=== PATIENT | male | born 1965 | race Caucasian/White ===

== ENCOUNTER 2016-08-28 17:51 | Inpatient (IN) | payer MEDICAID, OTHER ==
[~2016-08-28] VITALS: Ht 175.3 cm; Wt 106.0 kg
[~2016-08-28 17:51] MED LIST: DIVA500T52 PO; PARO20TA24 PO; RISP0.252 PO; VITAD1000 PO
[2016-08-28] MEDS ORDERED: LORA1TAB3 PO (18:28)
[2016-08-28 18:31] LABS: ANION GAP 15 mmol/L (8-16); BASOPHILS % (AUTO) 0.6 % (0.0-2.0); CARBON DIOXIDE 24 mmol/L (22-29); CHLORIDE 102 mmol/L (98-107); CREATININE 0.85 mg/dL (0.60-1.30); EOSINOPHILS % (AUTO) 1.3 % (1.0-6.0); GLOMERULAR FILTR. RATE CALC > 60 mL/min (>60); HEMATOCRIT 47.7 % (41-53); HEMOGLOBIN 15.9 g/dL (13.5-17.5); LYMPHOCYTES # (AUTO) 1.4 K/uL (1.0-4.8); LYMPHOCYTES % (AUTO) 26.5 % (22.0-44.0); MEAN CORPUSCULAR HEMOGLOBIN 31.2 pg (26.0-34.0); MEAN CORPUSCULAR HGB CONC 33.4 G/dL (31.0-37.0); MEAN CORPUSCULAR VOLUME 94 fL (80-100); MONOCYTES # (AUTO) 0.6 K/uL (0.1-1.0); MONOCYTES % (AUTO) 10.8 % (2.0-9.0); NEUTROPHILS # (AUTO) 3.2 K/uL (1.8-7.7); NEUTROPHILS % (AUTO) 60.8 % (40.0-70.0); PLATELET COUNT (AUTO) 146 K/uL (150-450); POTASSIUM 3.9 mmol/L (3.5-5.1); SODIUM SERUM 141 mmol/L (136-145); UREA NITROGEN, BLOOD 11 mg/dL (7-18); WHITE BLOOD COUNT (AUTO) 5.3 K/uL (4.5-11.0)
[2016-08-28 18:36] LABS: ALANINE AMINOTRANSFERASE 46 U/L (12-78); ALBUMIN 3.8 g/dL (3.4-5.0); ASPARTATE AMINOTRANSFERASE 45 U/L (15-37); BILIRUBIN,TOTAL 0.5 mg/dL (0.1-1.0); TOTAL PROTEIN, SERUM 8.2 g/dL (6.4-8.2)
[2016-08-28] MEDS ORDERED: ZOLPIDEM TARTRATE 10 MG TABLET PO PRN (19:00)
[2016-08-28] MEDS ORDERED: ChlordiazePOXIDE HCL 25 MG CAPSULE PO PRN (19:00)
[2016-08-28] MEDS ORDERED: HALOPERIDOL 5 MG TABLET PO PRN (19:00)
[2016-08-28] MEDS ORDERED: ONDANSETRON HCL 4 MG TABLET PO ONE (19:30)
[2016-08-28 20:00] VITALS: BP 119/93
[2016-08-28 21:00] VITALS: BP 115/89
[2016-08-28 21:20] VITALS: BP 115/89
[2016-08-28 23:15] VITALS: BP_SYST 116; BP_SYST 16; BP_DIAS 86
[2016-08-29] VITALS (7 sets, daily range): BP systolic 112–126; BP diastolic 72–91
[2016-08-29] MEDS ORDERED: ChlordiazePOXIDE HCL 25 MG CAPSULE PO PRN (07:00)
[2016-08-29] MEDS: THIAMINE HCL 100 MG TABLET PO SCH (09:11)
[2016-08-29] MEDS: FOLIC ACID 1 MG TABLET PO SCH (09:11)
[2016-08-29] MEDS: ChlordiazePOXIDE HCL 25 MG CAPSULE PO SCH ×4 (09:11→20:49)
[2016-08-29] MEDS: PARoxetine HCL 20 MG TABLET PO SCH (12:23)
[2016-08-29] MEDS ORDERED: ONDANSETRON HCL 4 MG TABLET PO PRN (19:00)
[2016-08-30 00:10] VITALS: BP 121/68
[2016-08-30 06:45] VITALS: BP 118/72
[2016-08-30 06:47] VITALS: BP 118/72
[2016-08-30 08:07] VITALS: BP 132/87
[2016-08-30] MEDS: FOLIC ACID 1 MG TABLET PO SCH (09:58)
[2016-08-30] MEDS: ChlordiazePOXIDE HCL 25 MG CAPSULE PO SCH ×4 (09:58→20:43)
[2016-08-30] MEDS: THIAMINE HCL 100 MG TABLET PO SCH (09:58)
[2016-08-30] MEDS: PARoxetine HCL 20 MG TABLET PO SCH (09:58)
[2016-08-30] MEDS ORDERED: MAG HYDROX/AL HYDROX/SIMETH 30 ML SUSP UDCUP PO PRN (14:45)
[2016-08-30] MEDS ORDERED: ACETAMINOPHEN 325 MG TABLET PO PRN (16:30)
[2016-08-30 16:41] VITALS: BP 139/87
[2016-08-31] MEDS ORDERED: ChlordiazePOXIDE HCL 10 MG CAPSULE PO PRN (07:00)
[2016-08-31] MEDS: ChlordiazePOXIDE HCL 10 MG CAPSULE PO SCH ×2 (08:27→12:04)
[2016-08-31] MEDS: PARoxetine HCL 20 MG TABLET PO SCH (08:27)
[2016-08-31] MEDS: FOLIC ACID 1 MG TABLET PO SCH (08:27)
[2016-08-31] MEDS: THIAMINE HCL 100 MG TABLET PO SCH (08:28)
[2016-08-31] MEDS ORDERED: TETRAHYDROZOLINE HCL 0.05% 15 ML OPHTHALMIC SOLUTION OU PRN (08:45)
[2016-08-31] MEDS ORDERED: AmLODIPine BESYLATE 5 MG TABLET PO SCH (09:00)
[2016-08-31] MEDS ORDERED: AMLO-511 PO (10:53)
[2016-08-31] MEDS ORDERED: THIA100 PO (10:53)
[2016-08-31] MEDS ORDERED: FOLI1 PO (10:53)
[2016-08-31 14:58] VITALS: BP 139/99
[2016-09-01] MEDS ORDERED: ChlordiazePOXIDE HCL 10 MG CAPSULE PO PRN (07:00)
== END 2016-08-31 15:00 | disposition home or self-care (01) | DRG 751 ==
LOC: EMS 17:52 → 3EI 19:00
PROVIDERS: ADMIT Psychiatry & Neurology Child & Adolescent Psychiatry; ATTEND Psychiatry & Neurology Child & Adolescent Psychiatry
DX: F33.2 Major depressive disorder, recurrent severe without psychotic features (principal); R45.851 Suicidal ideations; F10.239 Alcohol dependence with withdrawal, unspecified; F41.9 Anxiety disorder, unspecified; R74.0 Nonspecific elevation of levels of transaminase and lactic acid dehydrogenase [LDH]; F19.10 Other psychoactive substance abuse, uncomplicated; Z71.51 Drug abuse counseling and surveillance of drug abuser; Z71.41 Alcohol abuse counseling and surveillance of alcoholic; Z79.899 Other long term (current) drug therapy
CPT/HCPCS: 99285; G0480; Q0162

== ENCOUNTER 2016-12-24 12:15 | Inpatient (IN) | payer MEDICAID, OTHER ==
[~2016-12-24] VITALS: Ht 175.3 cm; Wt 88.9 kg
[~2016-12-24 12:15] MED LIST changes: +AMLO-511 PO; -DIVA500T52 PO; -RISP0.252 PO; -VITAD1000 PO
[2016-12-24] MEDS ORDERED: LIB25 PO (12:26)
[2016-12-24] MEDS ORDERED: FLUO-191 PO (12:26)
[2016-12-24] MEDS ORDERED: CLON1 PO (12:26)
[2016-12-24 12:57] LABS: BASOPHILS % (AUTO) 1.3 % (0.0-2.0); HEMATOCRIT 38.4 % (41-53); HEMOGLOBIN 13.5 g/dL (13.5-17.5); LYMPHOCYTES # (AUTO) 1.2 K/uL (1.0-4.8); LYMPHOCYTES % (AUTO) 32.2 % (22.0-44.0); MEAN CORPUSCULAR HEMOGLOBIN 32.5 pg (26.0-34.0); MEAN CORPUSCULAR HGB CONC 35.2 G/dL (31.0-37.0); MEAN CORPUSCULAR VOLUME 92 fL (80-100); MONOCYTES # (AUTO) 0.4 K/uL (0.1-1.0); MONOCYTES % (AUTO) 11.2 % (2.0-9.0); NEUTROPHILS # (AUTO) 1.9 K/uL (1.8-7.7); NEUTROPHILS % (AUTO) 53.3 % (40.0-70.0); PLATELET COUNT (AUTO) 269 K/uL (150-450); RED BLOOD CELL COUNT(AUTO) 4.16 MIL/uL (4.50-5.90); RED CELL DISTRIBUTION WIDTH 18.3 % (11.5-14.5); WHITE BLOOD COUNT (AUTO) 3.6 K/uL (4.5-11.0)
[2016-12-24 13:10] LABS: ANION GAP 11 mmol/L (8-16); CALCIUM, TOTAL 8.5 mg/dL (8.8-10.5); CARBON DIOXIDE 26 mmol/L (22-29); CHLORIDE 108 mmol/L (98-107); CREATININE 0.69 mg/dL (0.60-1.30); GLOMERULAR FILTR. RATE CALC > 60 mL/min (>60); POTASSIUM 3.8 mmol/L (3.5-5.1); SODIUM SERUM 145 mmol/L (136-145); UREA NITROGEN, BLOOD 6 mg/dL (7-18)
[2016-12-24 13:16] LABS: ALANINE AMINOTRANSFERASE 68 U/L (12-78); ALBUMIN 3.4 g/dL (3.4-5.0); ASPARTATE AMINOTRANSFERASE 80 U/L (15-37); BILIRUBIN,TOTAL 0.6 mg/dL (0.1-1.0); RBC MORPHOLOGY COMMENT ABNORMAL RBC MORPH; TOTAL PROTEIN, SERUM 7.1 g/dL (6.4-8.2)
[2016-12-24] MEDS ORDERED: LORazepam 2 MG TABLET PO PRN ×2 (14:15→22:00)
[2016-12-24] MEDS ORDERED: ZOLPIDEM TARTRATE 10 MG TABLET PO PRN (14:15)
[2016-12-24] MEDS ORDERED: HALOPERIDOL 5 MG TABLET PO PRN (14:15)
[2016-12-24] MEDS ORDERED: HydrOXYzine HCL 50 MG TABLET PO ONE (14:30)
[2016-12-24] MEDS ORDERED: GABAPENTIN 100 MG CAPSULE PO ONE (14:30)
[2016-12-24 22:00] VITALS: BP 131/69
[2016-12-24] MEDS ORDERED: GuaiFENesin/D-METHORPHAN [SUGAR-FREE] 200-20MG/10 ML SYRUP UDCUP PO PRN (22:00)
[2016-12-24] MEDS ORDERED: HydrOXYzine PAMOATE 50 MG CAPSULE PO PRN (22:00)
[2016-12-24] MEDS ORDERED: LOPERAMIDE HCL 2 MG CAPSULE PO PRN (22:00)
[2016-12-24] MEDS ORDERED: CYANOCOBALAMIN 1,000 MCG/ML VIAL IM ONE (22:00)
[2016-12-24] MEDS: THIAMINE HCL 100 MG TABLET PO SCH (22:18)
[2016-12-24] MEDS ORDERED: LORazepam 2 MG/ML VIAL IM ONE (22:45)
[2016-12-24 23:00] VITALS: BP 126/83
[2016-12-25] VITALS (11 sets, daily range): BP systolic 11–142; BP diastolic 67–93
[2016-12-25] MEDS ORDERED: LORazepam 2 MG TABLET PO PRN (07:00)
[2016-12-25] MEDS: LORazepam 2 MG TABLET PO SCH ×4 (08:27→20:45)
[2016-12-25] MEDS: MULTIVITAMINS WITH MINERALS, THERAPEUTIC TABLET PO SCH (08:27)
[2016-12-25] MEDS: THIAMINE HCL 100 MG TABLET PO SCH ×2 (08:27→16:47)
[2016-12-25] MEDS: FOLIC ACID 1 MG TABLET PO SCH (08:27)
[2016-12-25] MEDS: AmLODIPine BESYLATE 5 MG TABLET PO SCH (11:12)
[2016-12-25] MEDS ORDERED: ACETAMINOPHEN 325 MG TABLET PO PRN (11:15)
[2016-12-25] MEDS: CHOLECALCIFEROL (VIT D3) 1,000 UNITS TABLET PO SCH (11:38)
[2016-12-25] MEDS: FLUoxetine HCL 20 MG CAPSULE PO SCH (15:25)
[2016-12-25] MEDS: GABAPENTIN 300 MG CAPSULE PO SCH (16:47)
[2016-12-26 00:10] VITALS: BP 100/65
[2016-12-26 08:00] VITALS: BP 104/66
[2016-12-26] MEDS: FLUoxetine HCL 20 MG CAPSULE PO SCH (08:57)
[2016-12-26] MEDS: GABAPENTIN 300 MG CAPSULE PO SCH ×2 (08:57→12:30)
[2016-12-26] MEDS: MULTIVITAMINS WITH MINERALS, THERAPEUTIC TABLET PO SCH (08:57)
[2016-12-26] MEDS: CHOLECALCIFEROL (VIT D3) 1,000 UNITS TABLET PO SCH (08:57)
[2016-12-26] MEDS: FOLIC ACID 1 MG TABLET PO SCH (08:57)
[2016-12-26] MEDS: AmLODIPine BESYLATE 5 MG TABLET PO SCH (08:58)
[2016-12-26] MEDS: LORazepam 2 MG TABLET PO SCH ×4 (08:58→20:22)
[2016-12-26] MEDS: THIAMINE HCL 100 MG TABLET PO SCH ×2 (08:58→16:24)
[2016-12-26 09:05] VITALS: BP 104/66
[2016-12-26 16:00] VITALS: BP 118/70
[2016-12-26] MEDS: GABAPENTIN 100 MG CAPSULE PO SCH (16:24)
[2016-12-27 00:20] VITALS: BP 108/64
[2016-12-27] MEDS ORDERED: LORazepam 1 MG TABLET PO PRN (07:00)
[2016-12-27 08:21] VITALS: BP 102/60
[2016-12-27 08:22] VITALS: BP 102/60
[2016-12-27] MEDS: MULTIVITAMINS WITH MINERALS, THERAPEUTIC TABLET PO SCH (09:03)
[2016-12-27] MEDS: GABAPENTIN 100 MG CAPSULE PO SCH ×3 (09:03→16:41)
[2016-12-27] MEDS: CHOLECALCIFEROL (VIT D3) 1,000 UNITS TABLET PO SCH (09:03)
[2016-12-27] MEDS: LORazepam 1 MG TABLET PO SCH ×4 (09:03→20:55)
[2016-12-27] MEDS: FOLIC ACID 1 MG TABLET PO SCH (09:03)
[2016-12-27] MEDS: AmLODIPine BESYLATE 5 MG TABLET PO SCH (09:03)
[2016-12-27] MEDS: THIAMINE HCL 100 MG TABLET PO SCH ×2 (09:03→16:41)
[2016-12-27] MEDS: FLUoxetine HCL 20 MG CAPSULE PO SCH (09:03)
[2016-12-27 09:56] VITALS: BP 105/67
[2016-12-27 16:00] VITALS: BP 112/74
[2016-12-28 00:48] VITALS: BP 100/63
[2016-12-28] MEDS ORDERED: LORazepam 1 MG TABLET PO PRN (07:00)
[2016-12-28 08:00] VITALS: BP 97/61
[2016-12-28] MEDS: FOLIC ACID 1 MG TABLET PO SCH (08:59)
[2016-12-28] MEDS: THIAMINE HCL 100 MG TABLET PO SCH (08:59)
[2016-12-28] MEDS: CHOLECALCIFEROL (VIT D3) 1,000 UNITS TABLET PO SCH (08:59)
[2016-12-28] MEDS: MULTIVITAMINS WITH MINERALS, THERAPEUTIC TABLET PO SCH (08:59)
[2016-12-28] MEDS: AmLODIPine BESYLATE 5 MG TABLET PO SCH (08:59)
[2016-12-28] MEDS ORDERED: FLUoxetine HCL 20 MG CAPSULE PO SCH (09:00)
[2016-12-28] MEDS ORDERED: AMLO-511 PO (09:48)
[2016-12-28] MEDS ORDERED: CHOL200016 PO (09:48)
[2016-12-28 12:16] VITALS: BP 117/79
== END 2016-12-28 12:35 | disposition home or self-care (01) | DRG 751 ==
LOC: EMS 12:16 → B2S 20:52
PROVIDERS: ADMIT Psychiatry & Neurology Psychiatry; ATTEND Psychiatry & Neurology Psychiatry
DX: F33.2 Major depressive disorder, recurrent severe without psychotic features (principal); R45.851 Suicidal ideations; F41.9 Anxiety disorder, unspecified; F10.20 Alcohol dependence, uncomplicated; Y90.8 Blood alcohol level of 240 mg/100 ml or more; Z79.899 Other long term (current) drug therapy; Z71.41 Alcohol abuse counseling and surveillance of alcoholic
CPT/HCPCS: 93005; 99285; G0480; J2060; J3420

== ENCOUNTER 2017-06-22 16:33 | Inpatient (IN) | payer MEDICAID, OTHER ==
[~2017-06-22] VITALS: Ht 175.3 cm; Wt 89.4 kg
[~2017-06-22 16:33] MED LIST changes: +CHOL200016 PO; +FLUO-191 PO; -PARO20TA24 PO
[2017-06-22] MEDS ORDERED: GABA-531 PO (18:02)
[2017-06-22] MEDS ORDERED: CLON1 PO (18:02)
[2017-06-22] MEDS ORDERED: FLUO-191 PO (18:02)
[2017-06-22] MEDS ORDERED: AMLO2.5T PO (18:02)
[2017-06-22] MEDS ORDERED: QUET25TA PO (18:02)
[2017-06-22 18:28] LABS: GLUCOSE,POINT OF CARE 92 MG/DL (70-110)
[2017-06-22] MEDS ORDERED: LORazepam 1 MG TABLET PO ONE (18:45)
[2017-06-22 18:50] LABS: BASOPHILS % (AUTO) 0.5 % (0.0-2.0); EOSINOPHILS % (AUTO) 1.2 % (1.0-6.0); HEMATOCRIT 36.6 % (41-53); HEMOGLOBIN 12.7 g/dL (13.5-17.5); LYMPHOCYTES # (AUTO) 1.5 K/uL (1.0-4.8); LYMPHOCYTES % (AUTO) 26.4 % (22.0-44.0); MEAN CORPUSCULAR HEMOGLOBIN 31.4 pg (26.0-34.0); MEAN CORPUSCULAR HGB CONC 34.7 G/dL (31.0-37.0); MEAN CORPUSCULAR VOLUME 90 fL (80-100); MONOCYTES # (AUTO) 0.6 K/uL (0.1-1.0); MONOCYTES % (AUTO) 10.5 % (2.0-9.0); NEUTROPHILS # (AUTO) 3.5 K/uL (1.8-7.7); NEUTROPHILS % (AUTO) 61.4 % (40.0-70.0); PLATELET COUNT (AUTO) 150 K/uL (150-450); RED BLOOD CELL COUNT(AUTO) 4.06 MIL/uL (4.50-5.90); RED CELL DISTRIBUTION WIDTH 13.8 % (11.5-14.5)
[2017-06-22 20:17] LABS: ANION GAP 11 mmol/L (8-16); CALCIUM, TOTAL 8.2 mg/dL (8.8-10.5); CARBON DIOXIDE 23 mmol/L (22-29); CHLORIDE 107 mmol/L (98-107); CREATININE 0.75 mg/dL (0.60-1.30); GLOMERULAR FILTR. RATE CALC > 60 mL/min (>60); GLUCOSE,RANDOM 89 mg/dL (70-110); POTASSIUM 4.2 mmol/L (3.5-5.1); SODIUM SERUM 141 mmol/L (136-145); UREA NITROGEN, BLOOD 14 mg/dL (7-18)
[2017-06-22 20:23] LABS: ALANINE AMINOTRANSFERASE 60 U/L (12-78); ALBUMIN 3.2 g/dL (3.4-5.0); ALKALINE PHOSPHATASE 110 U/L (46-116); ASPARTATE AMINOTRANSFERASE 41 U/L (15-37); BILIRUBIN,TOTAL 0.5 mg/dL (0.1-1.0); TOTAL PROTEIN, SERUM 6.4 g/dL (6.4-8.2)
[2017-06-22 20:43] LABS: ACETAMINOPHEN < 2 mcg/mL (10-30)
[2017-06-22] MEDS ORDERED: HALOPERIDOL 5 MG TABLET PO PRN (22:45)
[2017-06-23] VITALS (8 sets, daily range): BP systolic 105–133; BP diastolic 62–92
[2017-06-23] MEDS: LORazepam 2 MG TABLET PO PRN ×3 (01:59→21:59)
[2017-06-23 09:44] LABS: CHOL/HDL RATIO 2.5 (4.2-7.3)
[2017-06-23] MEDS ORDERED: ChlordiazePOXIDE HCL 25 MG CAPSULE PO PRN (10:45)
[2017-06-23] MEDS: FLUoxetine HCL 20 MG CAPSULE PO SCH (11:13)
[2017-06-23] MEDS: GABAPENTIN 300 MG CAPSULE PO SCH ×2 (12:31→16:25)
[2017-06-23] MEDS: QUEtiapine FUMARATE 25 MG TABLET PO SCH (20:18)
[2017-06-24 00:20] VITALS: BP 108/76
[2017-06-24 04:04] VITALS: BP 115/68
[2017-06-24] MEDS ORDERED: ChlordiazePOXIDE HCL 25 MG CAPSULE PO PRN (07:00)
[2017-06-24 07:32] VITALS: BP 113/61
[2017-06-24 08:07] VITALS: BP 115/76
[2017-06-24] MEDS: GABAPENTIN 300 MG CAPSULE PO SCH ×3 (09:30→16:53)
[2017-06-24] MEDS: FLUoxetine HCL 20 MG CAPSULE PO SCH (09:30)
[2017-06-24] MEDS: ChlordiazePOXIDE HCL 25 MG CAPSULE PO SCH ×4 (09:30→20:40)
[2017-06-24 10:45] VITALS: BP 111/72
[2017-06-24] MEDS: LORazepam 2 MG TABLET PO PRN ×3 (10:58→22:18)
[2017-06-24 16:00] VITALS: BP 114/74
[2017-06-24] MEDS: QUEtiapine FUMARATE 25 MG TABLET PO SCH (20:40)
[2017-06-24] MEDS: ZOLPIDEM TARTRATE 10 MG TABLET PO PRN (20:40)
[2017-06-25] VITALS (9 sets, daily range): BP systolic 113–129; BP diastolic 71–90
[2017-06-25] MEDS: LORazepam 2 MG TABLET PO PRN ×2 (02:30→12:55)
[2017-06-25] MEDS: GABAPENTIN 300 MG CAPSULE PO SCH ×3 (08:24→17:12)
[2017-06-25] MEDS: ChlordiazePOXIDE HCL 25 MG CAPSULE PO SCH ×4 (08:24→20:05)
[2017-06-25] MEDS: FLUoxetine HCL 20 MG CAPSULE PO SCH (08:24)
[2017-06-25] MEDS ORDERED: ACETAMINOPHEN 325 MG TABLET PO PRN (08:45)
[2017-06-25] MEDS: IBUPROFEN 600 MG TABLET PO PRN (08:55)
[2017-06-25] MEDS: QUEtiapine FUMARATE 25 MG TABLET PO SCH (20:05)
[2017-06-25] MEDS: ZOLPIDEM TARTRATE 10 MG TABLET PO PRN (21:57)
[2017-06-26] MEDS: LORazepam 2 MG TABLET PO PRN (00:08)
[2017-06-26 01:43] VITALS: BP 115/80
[2017-06-26] MEDS: IBUPROFEN 600 MG TABLET PO PRN (04:39)
[2017-06-26] MEDS ORDERED: ChlordiazePOXIDE HCL 10 MG CAPSULE PO PRN (07:00)
[2017-06-26 08:12] VITALS: BP 120/86
[2017-06-26] MEDS: FLUoxetine HCL 20 MG CAPSULE PO SCH (08:16)
[2017-06-26] MEDS: GABAPENTIN 300 MG CAPSULE PO SCH (08:16)
[2017-06-26 08:54] VITALS: BP 121/82
[2017-06-26] MEDS ORDERED: ChlordiazePOXIDE HCL 10 MG CAPSULE PO SCH (09:00)
[2017-06-26] MEDS ORDERED: CHOLECALCIFEROL (VIT D3) 5,000 UNITS CAPSULE PO SCH (09:00)
[2017-06-26] MEDS ORDERED: QUET25TA PO (09:31)
[2017-06-26] MEDS ORDERED: CHOL50004 PO (09:33)
[2017-06-27] MEDS ORDERED: ChlordiazePOXIDE HCL 10 MG CAPSULE PO PRN (07:00)
== END 2017-06-26 11:22 | disposition home or self-care (01) | DRG 751 ==
LOC: EMS 16:39 → B3A 06-23 00:05 → B2S 06-24 22:10
PROVIDERS: ADMIT Psychiatry & Neurology Child & Adolescent Psychiatry; ATTEND Psychiatry & Neurology Child & Adolescent Psychiatry
DX: F33.2 Major depressive disorder, recurrent severe without psychotic features (principal); R45.851 Suicidal ideations; F10.239 Alcohol dependence with withdrawal, unspecified; F41.9 Anxiety disorder, unspecified; Z79.899 Other long term (current) drug therapy; Z91.5 Personal history of self-harm
CPT/HCPCS: 82948; 82962; 93005; 99285; G0480; G0481

== ENCOUNTER 2018-11-19 12:22 | Inpatient (IN) | payer MEDICAID, OTHER ==
[~2018-11-19] VITALS: Ht 175.3 cm; Wt 96.8 kg
[~2018-11-19 12:22] MED LIST changes: -AMLO-511 PO; -CHOL200016 PO; +CHOL50004 PO; +GABA-531 PO; +QUET25TA PO
[2018-11-19] MEDS ORDERED: HYDR50CA10 PO (12:35)
[2018-11-19] MEDS ORDERED: CLON2 PO (12:35)
[2018-11-19 13:43] LABS: BASOPHILS % (AUTO) 0.5 % (0.0-2.0); EOSINOPHILS % (AUTO) 0.6 % (1.0-6.0); HEMATOCRIT 39.7 % (41-53); HEMOGLOBIN 13.2 g/dL (13.5-17.5); LYMPHOCYTES # (AUTO) 1.5 K/uL (1.0-4.8); LYMPHOCYTES % (AUTO) 30.2 % (22.0-44.0); MEAN CORPUSCULAR HEMOGLOBIN 29.7 pg (26.0-34.0); MEAN CORPUSCULAR HGB CONC 33.2 G/dL (31.0-37.0); MEAN CORPUSCULAR VOLUME 90 fL (80-100); MONOCYTES # (AUTO) 0.5 K/uL (0.1-1.0); MONOCYTES % (AUTO) 9.7 % (2.0-9.0); PLATELET COUNT (AUTO) 144 K/uL (150-450); RED BLOOD CELL COUNT(AUTO) 4.44 MIL/uL (4.50-5.90); RED CELL DISTRIBUTION WIDTH 14.3 % (11.5-14.5)
[2018-11-19 13:52] LABS: ANION GAP 12 mmol/L (8-16); CALCIUM, TOTAL 8.1 mg/dL (8.8-10.5); CARBON DIOXIDE 26 mmol/L (22-29); CHLORIDE 109 mmol/L (98-107); GLOMERULAR FILTR. RATE CALC > 60 mL/min (>60); GLUCOSE,RANDOM 94 mg/dL (70-110); POTASSIUM 3.3 mmol/L (3.5-5.1); SODIUM SERUM 147 mmol/L (136-145); UREA NITROGEN, BLOOD 16 mg/dL (7-18)
[2018-11-19 13:58] LABS: ALANINE AMINOTRANSFERASE 77 U/L (12-78); ALBUMIN 3.2 g/dL (3.4-5.0); ALKALINE PHOSPHATASE 115 U/L (46-116); ASPARTATE AMINOTRANSFERASE 93 U/L (15-37); BILIRUBIN,TOTAL 0.6 mg/dL (0.1-1.0); TOTAL PROTEIN, SERUM 6.8 g/dL (6.4-8.2)
[2018-11-19 14:06] LABS: AMPHET/METH SCREEN,URINE NEGATIVE (NEGATIVE); BARBITURATE SCREEN, URINE NEGATIVE (NEGATIVE); BENZODIAZEPINES SCREEN,URINE POSITIVE (NEGATIVE); CANNABINOID SCREEN,URINE NEGATIVE (NEGATIVE); COCAINE SCREEN,URINE NEGATIVE (NEGATIVE); METHADONE SCREEN, URINE NEGATIVE (NEGATIVE); OPIATE SCREEN,URINE NEGATIVE (NEGATIVE)
[2018-11-19 14:09] LABS: PHENCYCLIDINE SCREEN,URINE NEGATIVE (NEGATIVE)
[2018-11-19] MEDS ORDERED: POTASSIUM CHLORIDE 10% 40 MEQ/30 ML LIQUID UDCUP PO ONE (15:00)
[2018-11-19] MEDS ORDERED: LORazepam 2 MG TABLET PO ONE (23:30)
[2018-11-20] VITALS (12 sets, daily range): BP systolic 123–156; BP diastolic 77–100
[2018-11-20] MEDS ORDERED: QUEtiapine FUMARATE 100 MG TABLET PO PRN ×2 (01:45→03:45)
[2018-11-20] MEDS ORDERED: LORazepam 2 MG TABLET PO PRN (02:00)
[2018-11-20] MEDS ORDERED: CYANOCOBALAMIN 1,000 MCG/ML VIAL IM ONE (03:45)
[2018-11-20] MEDS ORDERED: ZOLPIDEM TARTRATE 10 MG TABLET PO PRN (03:45)
[2018-11-20] MEDS: LORazepam 2 MG TABLET PO PRN ×3 (07:37→13:32)
[2018-11-20] MEDS: FOLIC ACID 1 MG TABLET PO SCH (09:27)
[2018-11-20] MEDS: MULTIVITAMINS WITH MINERALS, THERAPEUTIC TABLET PO SCH (09:28)
[2018-11-20] MEDS: FLUoxetine HCL 20 MG CAPSULE PO SCH (09:28)
[2018-11-20] MEDS: GABAPENTIN 300 MG CAPSULE PO SCH ×4 (09:28→21:17)
[2018-11-20] MEDS: THIAMINE HCL 100 MG TABLET PO SCH ×2 (09:28→16:23)
[2018-11-20] MEDS ORDERED: POTASSIUM CHLORIDE 20 MEQ ER TABLET PO ONE ×2 (13:45→21:00)
[2018-11-20] MEDS: DIAZEPAM 10 MG TABLET PO PRN ×2 (17:13→21:16)
[2018-11-21 02:00] VITALS: BP 136/88
[2018-11-21] MEDS: DIAZEPAM 10 MG TABLET PO PRN (05:59)
[2018-11-21 06:00] VITALS: BP 139/92
[2018-11-21] MEDS ORDERED: LORazepam 2 MG TABLET PO PRN (07:00)
[2018-11-21] MEDS ORDERED: DIAZEPAM 10 MG TABLET PO PRN (07:00)
[2018-11-21 08:34] LABS: ANION GAP 4 mmol/L (8-16); CALCIUM, TOTAL 8.1 mg/dL (8.8-10.5); CARBON DIOXIDE 28 mmol/L (22-29); CHLORIDE 106 mmol/L (98-107); CHOL/HDL RATIO 2.6 (4.2-7.3); CHOLESTEROL 198 mg/dL (131-200); CREATININE 0.75 mg/dL (0.60-1.30); FREE T4 (FREE THYROXINE) 1.12 ng/dL (0.76-1.46); GLOMERULAR FILTR. RATE CALC > 60 mL/min (>60); GLUCOSE,RANDOM 95 mg/dL (70-110); HDL CHOLESTEROL 77 mg/dL (40-60); LDL CHOL (CALC.) 108 mg/dL (0-130); POTASSIUM 3.3 mmol/L (3.5-5.1); SODIUM SERUM 138 mmol/L (136-145); THYROID STIMULATING HORMONE 2.33 uIU/mL (0.36-3.74); TRIGLYCERIDES 66 mg/dL (15-150); UREA NITROGEN, BLOOD 9 mg/dL (7-18)
[2018-11-21 08:42] VITALS: BP 108/69
[2018-11-21] MEDS: CHOLECALCIFEROL (VIT D3) 5,000 UNITS CAPSULE PO SCH (08:49)
[2018-11-21] MEDS: MULTIVITAMINS WITH MINERALS, THERAPEUTIC TABLET PO SCH (08:49)
[2018-11-21] MEDS: DIAZEPAM 10 MG TABLET PO SCH ×4 (08:49→20:04)
[2018-11-21] MEDS: THIAMINE HCL 100 MG TABLET PO SCH ×2 (08:49→16:52)
[2018-11-21] MEDS: FOLIC ACID 1 MG TABLET PO SCH (08:49)
[2018-11-21] MEDS: GABAPENTIN 300 MG CAPSULE PO SCH ×3 (08:49→16:52)
[2018-11-21] MEDS: FLUoxetine HCL 20 MG CAPSULE PO SCH (08:49)
[2018-11-21] MEDS ORDERED: LORazepam 2 MG TABLET PO SCH (09:00)
[2018-11-21 10:00] VITALS: BP 128/78
[2018-11-21] MEDS: POTASSIUM CHLORIDE 20 MEQ ER TABLET PO SCH (12:12)
[2018-11-21 13:18] VITALS: BP 118/74
[2018-11-21] MEDS: ACETAMINOPHEN 325 MG TABLET PO PRN (13:18)
[2018-11-21 16:00] VITALS: BP 131/85
[2018-11-21] MEDS: GABAPENTIN 400 MG CAPSULE PO SCH (20:04)
[2018-11-22 00:08] VITALS: BP 134/93
[2018-11-22 01:00] VITALS: BP 134/93
[2018-11-22 08:12] VITALS: BP 108/81
[2018-11-22] MEDS ORDERED: FLUoxetine HCL 20 MG CAPSULE PO SCH (09:00)
[2018-11-22] MEDS: CHOLECALCIFEROL (VIT D3) 5,000 UNITS CAPSULE PO SCH (09:11)
[2018-11-22] MEDS: DIAZEPAM 10 MG TABLET PO SCH ×4 (09:11→20:45)
[2018-11-22] MEDS: FOLIC ACID 1 MG TABLET PO SCH (09:12)
[2018-11-22] MEDS: GABAPENTIN 400 MG CAPSULE PO SCH ×4 (09:12→20:45)
[2018-11-22] MEDS: THIAMINE HCL 100 MG TABLET PO SCH ×2 (09:12→17:00)
[2018-11-22] MEDS: MULTIVITAMINS WITH MINERALS, THERAPEUTIC TABLET PO SCH (09:12)
[2018-11-22] MEDS: POTASSIUM CHLORIDE 20 MEQ ER TABLET PO SCH (09:12)
[2018-11-22 16:30] VITALS: BP 113/73
[2018-11-22] MEDS ORDERED: GABA-533 PO (16:49)
[2018-11-22] MEDS ORDERED: FLUO-191 PO (16:49)
[2018-11-22] MEDS ORDERED: NALT50TA PO (16:49)
[2018-11-22] MEDS: ACETAMINOPHEN 325 MG TABLET PO PRN (17:00)
[2018-11-23 05:35] VITALS: BP 117/63
[2018-11-23] MEDS ORDERED: DIAZEPAM 5 MG TABLET PO PRN (07:00)
[2018-11-23] MEDS ORDERED: LORazepam 1 MG TABLET PO PRN (07:00)
[2018-11-23] MEDS: FOLIC ACID 1 MG TABLET PO SCH (08:28)
[2018-11-23] MEDS: THIAMINE HCL 100 MG TABLET PO SCH (08:28)
[2018-11-23] MEDS: CHOLECALCIFEROL (VIT D3) 5,000 UNITS CAPSULE PO SCH (08:28)
[2018-11-23] MEDS: MULTIVITAMINS WITH MINERALS, THERAPEUTIC TABLET PO SCH (08:28)
[2018-11-23] MEDS: POTASSIUM CHLORIDE 20 MEQ ER TABLET PO SCH (08:28)
[2018-11-23] MEDS: GABAPENTIN 400 MG CAPSULE PO SCH (08:39)
[2018-11-23 08:42] VITALS: BP 123/90
[2018-11-23] MEDS ORDERED: LORazepam 1 MG TABLET PO SCH (09:00)
[2018-11-23] MEDS ORDERED: NALTREXONE HCL 50 MG TABLET PO SCH (09:00)
[2018-11-23] MEDS ORDERED: DIAZEPAM 5 MG TABLET PO SCH (09:00)
[2018-11-23] MEDS ORDERED: FLUoxetine HCL 20 MG CAPSULE PO SCH (09:00)
[2018-11-24] MEDS ORDERED: LORazepam 1 MG TABLET PO PRN (07:00)
[2018-11-24] MEDS ORDERED: DIAZEPAM 5 MG TABLET PO PRN (07:00)
== END 2018-11-23 10:40 | disposition home or self-care (01) | DRG 751 ==
LOC: EMS 12:23 → B2S 11-20 09:19
PROVIDERS: ADMIT Psychiatry & Neurology Psychiatry; ATTEND Psychiatry & Neurology Psychiatry
DX: F33.9 Major depressive disorder, recurrent, unspecified (principal); R45.851 Suicidal ideations; Z91.19 Patient's noncompliance with other medical treatment and regimen; Z87.891 Personal history of nicotine dependence; Z91.5 Personal history of self-harm; Z79.899 Other long term (current) drug therapy
CPT/HCPCS: 82306; 84132; 84439; 84443; G0480; J3420

== ENCOUNTER 2019-01-14 18:54 | Inpatient (IN) | payer MEDICAID, OTHER ==
[~2019-01-14] VITALS: Ht 175.3 cm; Wt 93.0 kg
[~2019-01-14 18:54] MED LIST changes: -CHOL50004 PO; -GABA-531 PO; +GABA-533 PO; +NALT50TA PO; -QUET25TA PO
[2019-01-14] MEDS ORDERED: LIB5 PO (19:43)
[2019-01-14] MEDS ORDERED: LORA1TAB3 PO (19:43)
[2019-01-14 21:37] LABS: AMPHET/METH SCREEN,URINE NEGATIVE (NEGATIVE); BARBITURATE SCREEN, URINE NEGATIVE (NEGATIVE); BENZODIAZEPINES SCREEN,URINE POSITIVE (NEGATIVE); CANNABINOID SCREEN,URINE NEGATIVE (NEGATIVE); COCAINE SCREEN,URINE NEGATIVE (NEGATIVE); METHADONE SCREEN, URINE NEGATIVE (NEGATIVE); OPIATE SCREEN,URINE NEGATIVE (NEGATIVE)
[2019-01-14 21:38] LABS: PHENCYCLIDINE SCREEN,URINE NEGATIVE (NEGATIVE)
[2019-01-14 21:40] LABS: BASOPHILS % (AUTO) 0.2 % (0.0-2.0); EOSINOPHILS % (AUTO) 0.5 % (1.0-6.0); HEMATOCRIT 45.5 % (41-53); LYMPHOCYTES # (AUTO) 1.4 K/uL (1.0-4.8); LYMPHOCYTES % (AUTO) 31.3 % (22.0-44.0); MEAN CORPUSCULAR VOLUME 91 fL (80-100); MONOCYTES # (AUTO) 0.4 K/uL (0.1-1.0); MONOCYTES % (AUTO) 9.1 % (2.0-9.0); NEUTROPHILS # (AUTO) 2.6 K/uL (1.8-7.7); NEUTROPHILS % (AUTO) 58.9 % (40.0-70.0); PLATELET COUNT (AUTO) 232 K/uL (150-450); RED CELL DISTRIBUTION WIDTH 16.3 % (11.5-14.5)
[2019-01-14 21:42] LABS: ANION GAP 12 mmol/L (8-16); CALCIUM, TOTAL 8.4 mg/dL (8.8-10.5); CARBON DIOXIDE 24 mmol/L (22-29); CHLORIDE 104 mmol/L (98-107); CREATININE 0.85 mg/dL (0.60-1.30); GLOMERULAR FILTR. RATE CALC > 60 mL/min (>60); GLUCOSE,RANDOM 94 mg/dL (70-110); POTASSIUM 3.9 mmol/L (3.5-5.1); SODIUM SERUM 140 mmol/L (136-145); UREA NITROGEN, BLOOD 7 mg/dL (7-18)
[2019-01-14] MEDS ORDERED: HALOPERIDOL 5 MG TABLET PO PRN (21:45)
[2019-01-14] MEDS ORDERED: ZOLPIDEM TARTRATE 10 MG TABLET PO PRN (21:45)
[2019-01-14 21:48] LABS: ALANINE AMINOTRANSFERASE 31 U/L (12-78); ALBUMIN 3.6 g/dL (3.4-5.0); ALKALINE PHOSPHATASE 102 U/L (46-116); ASPARTATE AMINOTRANSFERASE 49 U/L (15-37)
[2019-01-14] MEDS ORDERED: LORazepam 2 MG TABLET PO ONE (22:00)
[2019-01-15] VITALS (10 sets, daily range): BP systolic 100–129; BP diastolic 63–84
[2019-01-15 02:56] LABS: APPEARANCE,URINE CLEAR (CLEAR); BILIRUBIN,URINE NEGATIVE (NEGATIVE); GLUCOSE, URINE (UA) NEGATIVE (NEGATIVE); KETONES,URINE NEGATIVE (NEGATIVE); LEUKOCYTE ESTERASE ,URINE NEGATIVE (NEGATIVE); NITRATE,URINE NEGATIVE (NEGATIVE); OCCULT BLOOD,URINE TRACE (NEGATIVE); PROTEIN,URINE NEGATIVE (NEGATIVE); UROBILINOGEN,URINE 0.2 mg/dL (<=1.0)
[2019-01-15] MEDS: LORazepam 2 MG TABLET PO PRN ×2 (03:17→05:19)
[2019-01-15 03:37] LABS: BACTERIA,URINE None Seen /HPF (None Seen); RBC,URINE 0-2 /HPF (0-2); SQUAMOUS EPITHELIAL CELL,UR Rare /LPF (None Seen); WBC,URINE 0-2 /HPF (0-5)
[2019-01-15] MEDS ORDERED: LORazepam 2 MG TABLET PO PRN (07:00)
[2019-01-15] MEDS: LORazepam 2 MG TABLET PO SCH ×3 (08:02→16:01)
[2019-01-15 08:03] LABS: CHOL/HDL RATIO 3.2 (4.2-7.3)
[2019-01-15] MEDS ORDERED: BISMUTH SUBSALICYLATE 524 MG/30 ML SUSPENSION UDCUP PO PRN (11:30)
[2019-01-15] MEDS ORDERED: FOLIC ACID 1 MG TABLET PO SCH (12:30)
[2019-01-15] MEDS ORDERED: THIAMINE HCL 100 MG TABLET PO SCH (12:30)
[2019-01-15] MEDS ORDERED: CYANOCOBALAMIN 1,000 MCG/ML VIAL IM ONE ×2 (12:30→16:15)
[2019-01-15] MEDS ORDERED: LOPERAMIDE HCL 2 MG CAPSULE PO PRN (16:15)
[2019-01-15] MEDS ORDERED: HydrOXYzine PAMOATE 50 MG CAPSULE PO PRN (16:15)
[2019-01-15] MEDS ORDERED: ACETAMINOPHEN 325 MG TABLET PO PRN (16:15)
[2019-01-15] MEDS ORDERED: GuaiFENesin/D-METHORPHAN [SUGAR-FREE] 200-20MG/10 ML SYRUP UDCUP PO PRN (16:15)
[2019-01-15] MEDS ORDERED: PROMETHAZINE HCL 25 MG TABLET PO PRN (16:15)
[2019-01-15] MEDS ORDERED: MAG HYDROX/AL HYDROX/SIMETH ES 30 ML SUSPENSION UDCUP PO PRN (16:15)
[2019-01-15] MEDS ORDERED: MAGNESIUM HYDROXIDE SUSPENSION 30 ML UDCUP PO PRN (16:15)
[2019-01-15] MEDS: THIAMINE HCL 100 MG TABLET PO SCH (16:43)
[2019-01-15] MEDS: GABAPENTIN 400 MG CAPSULE PO SCH ×3 (16:44→21:00)
[2019-01-15] MEDS ORDERED: GABAPENTIN 300 MG CAPSULE PO SCH (17:00)
[2019-01-15] MEDS: DIAZEPAM 10 MG TABLET PO PRN ×2 (18:36→20:49)
[2019-01-16 02:07] VITALS: BP 127/88
[2019-01-16 06:07] VITALS: BP 138/89
[2019-01-16] MEDS: DIAZEPAM 10 MG TABLET PO PRN (06:08)
[2019-01-16] MEDS ORDERED: DIAZEPAM 10 MG TABLET PO PRN (07:00)
[2019-01-16 08:15] VITALS: BP 117/81
[2019-01-16] MEDS: MULTIVITAMINS WITH MINERALS, THERAPEUTIC TABLET PO SCH (08:27)
[2019-01-16] MEDS: NALTREXONE HCL 50 MG TABLET PO SCH (08:27)
[2019-01-16] MEDS: FOLIC ACID 1 MG TABLET PO SCH (08:27)
[2019-01-16] MEDS: THIAMINE HCL 100 MG TABLET PO SCH ×2 (08:27→17:03)
[2019-01-16] MEDS ORDERED: PARoxetine HCL 20 MG TABLET PO SCH (09:00)
[2019-01-16] MEDS ORDERED: DULoxetine HCL 20 MG CAPSULE PO SCH (09:00)
[2019-01-16] MEDS: DIAZEPAM 10 MG TABLET PO SCH ×4 (09:18→20:10)
[2019-01-16 09:44] VITALS: BP 117/81
[2019-01-16 12:20] VITALS: BP 122/80
[2019-01-16] MEDS: GABAPENTIN 400 MG CAPSULE PO SCH ×3 (12:23→20:10)
[2019-01-16 16:00] VITALS: BP 123/96
[2019-01-17 00:34] VITALS: BP 106/69
[2019-01-17] MEDS ORDERED: LORazepam 1 MG TABLET PO PRN (07:00)
[2019-01-17 08:15] VITALS: BP 105/71
[2019-01-17] MEDS: PARoxetine HCL 20 MG TABLET PO SCH (08:36)
[2019-01-17] MEDS: MULTIVITAMINS WITH MINERALS, THERAPEUTIC TABLET PO SCH (08:36)
[2019-01-17] MEDS: FOLIC ACID 1 MG TABLET PO SCH (08:37)
[2019-01-17] MEDS: NALTREXONE HCL 50 MG TABLET PO SCH (08:37)
[2019-01-17] MEDS: GABAPENTIN 400 MG CAPSULE PO SCH ×4 (08:37→20:24)
[2019-01-17] MEDS: THIAMINE HCL 100 MG TABLET PO SCH ×2 (08:37→16:20)
[2019-01-17] MEDS: DIAZEPAM 10 MG TABLET PO SCH ×4 (08:37→20:24)
[2019-01-17] MEDS ORDERED: LORazepam 1 MG TABLET PO SCH (09:00)
[2019-01-17 12:18] VITALS: BP 114/78
[2019-01-17 16:16] VITALS: BP 114/78
[2019-01-17 16:37] VITALS: BP 114/78
[2019-01-18 06:26] VITALS: BP 131/80
[2019-01-18] MEDS ORDERED: DIAZEPAM 5 MG TABLET PO PRN (07:00)
[2019-01-18] MEDS ORDERED: LORazepam 1 MG TABLET PO PRN (07:00)
[2019-01-18] MEDS: THIAMINE HCL 100 MG TABLET PO SCH (08:05)
[2019-01-18] MEDS: FOLIC ACID 1 MG TABLET PO SCH (08:05)
[2019-01-18] MEDS: PARoxetine HCL 20 MG TABLET PO SCH (08:05)
[2019-01-18] MEDS: DIAZEPAM 5 MG TABLET PO SCH ×2 (08:05→12:23)
[2019-01-18] MEDS: GABAPENTIN 400 MG CAPSULE PO SCH ×2 (08:05→12:23)
[2019-01-18] MEDS: MULTIVITAMINS WITH MINERALS, THERAPEUTIC TABLET PO SCH (08:05)
[2019-01-18] MEDS: NALTREXONE HCL 50 MG TABLET PO SCH (08:06)
[2019-01-18 08:59] VITALS: BP 108/81
[2019-01-18] MEDS ORDERED: GABA-533 PO (11:08)
[2019-01-18] MEDS ORDERED: NALT50TA6 PO (11:08)
[2019-01-18] MEDS ORDERED: PARO10TA89 PO (11:08)
[2019-01-18 16:12] VITALS: BP 106/66
[2019-01-18] MEDS ORDERED: LOPERAMIDE HCL 2 MG CAPSULE PO PRN (16:15)
[2019-01-19] MEDS ORDERED: DIAZEPAM 5 MG TABLET PO PRN (07:00)
== END 2019-01-18 16:20 | disposition home or self-care (01) | DRG 751 ==
LOC: EMS 18:55 → B2S 22:00
PROVIDERS: ADMIT Psychiatry & Neurology Psychiatry; ATTEND Psychiatry & Neurology Psychiatry
DX: F33.2 Major depressive disorder, recurrent severe without psychotic features (principal); E83.51 Hypocalcemia; R45.851 Suicidal ideations; D72.819 Decreased white blood cell count, unspecified; F10.10 Alcohol abuse, uncomplicated; F17.210 Nicotine dependence, cigarettes, uncomplicated; F41.0 Panic disorder [episodic paroxysmal anxiety]; F41.9 Anxiety disorder, unspecified; F41.1 Generalized anxiety disorder; Z59.9 Problem related to housing and economic circumstances, unspecified; Z65.3 Problems related to other legal circumstances; Z80.1 Family history of malignant neoplasm of trachea, bronchus and lung; Z81.8 Family history of other mental and behavioral disorders; Z82.49 Family history of ischemic heart disease and other diseases of the circulatory system; Z91.14 Patient's other noncompliance with medication regimen; Z79.899 Other long term (current) drug therapy
CPT/HCPCS: G0480; J3420

== ENCOUNTER 2019-12-09 02:17 | Inpatient (IN) | payer MEDICAID, OTHER ==
[~2019-12-09] VITALS: Ht 175.3 cm; Wt 90.0 kg
[~2019-12-09 02:17] MED LIST changes: -FLUO-191 PO; +GABA-1201 PO; -GABA-533 PO; -NALT50TA PO; +NALT50TA6 PO; +PARO10TA89 PO
[2019-12-09] MEDS ORDERED: GABA-1216 PO (02:46)
[2019-12-09] MEDS ORDERED: ALPR0.5T8 PO (02:46)
[2019-12-09] MEDS ORDERED: HYDR-4031 PO (02:46)
[2019-12-09] MEDS ORDERED: FLUO-191 PO (02:47)
[2019-12-09] MEDS ORDERED: PB/HYOSCY/ATR/SCOP/LIDO/MAALOX 55 ML BOTTLE PO ONE (03:00)
[2019-12-09] MEDS ORDERED: ONDANSETRON HCL 4 MG TABLET PO ONE ×2 (03:00→14:30)
[2019-12-09] MEDS ORDERED: FAMOTIDINE 20 MG TABLET PO ONE (03:00)
[2019-12-09 03:31] LABS: CARBON DIOXIDE 29 mmol/L (22-29); CHLORIDE 101 mmol/L (98-107); POTASSIUM 3.8 mmol/L (3.5-5.1); SODIUM SERUM 139 mmol/L (136-145)
[2019-12-09 03:32] LABS: ANION GAP 9 mmol/L (8-16); BASOPHILS % (AUTO) 0.8 % (0.0-2.0); CALCIUM, TOTAL 8.7 mg/dL (8.8-10.5); CREATININE 1.02 mg/dL (0.60-1.30); EOSINOPHILS % (AUTO) 1.1 % (1.0-6.0); GLOMERULAR FILTR. RATE CALC > 60 mL/min (>60); GLUCOSE,RANDOM 99 mg/dL (70-110); HEMATOCRIT 45.4 % (41-53); HEMOGLOBIN 15.5 g/dL (13.5-17.5); LYMPHOCYTES # (AUTO) 1.4 K/uL (1.0-4.8); LYMPHOCYTES % (AUTO) 38.7 % (22.0-44.0); MEAN CORPUSCULAR HEMOGLOBIN 30.1 pg (26.0-34.0); MEAN CORPUSCULAR HGB CONC 34.1 G/dL (31.0-37.0); MEAN CORPUSCULAR VOLUME 88 fL (80-100); MONOCYTES # (AUTO) 0.5 K/uL (0.1-1.0); MONOCYTES % (AUTO) 12.4 % (2.0-9.0); NEUTROPHILS # (AUTO) 1.8 K/uL (1.8-7.7); PLATELET COUNT (AUTO) 194 K/uL (150-450); RED BLOOD CELL COUNT(AUTO) 5.15 MIL/uL (4.50-5.90); RED CELL DISTRIBUTION WIDTH 15.1 % (11.5-14.5); UREA NITROGEN, BLOOD 5 mg/dL (7-18)
[2019-12-09 03:35] LABS: INR 1.2 (0.9-1.1); PROTHROMBIN TIME 12.6 SEC (9.4-11.6)
[2019-12-09 03:38] LABS: ALANINE AMINOTRANSFERASE 46 U/L (12-78); ALKALINE PHOSPHATASE 112 U/L (46-116); ASPARTATE AMINOTRANSFERASE 59 U/L (15-37); BILIRUBIN,TOTAL 0.8 mg/dL (0.1-1.0); LIPASE 72 U/L (73-393); TOTAL PROTEIN, SERUM 8.3 g/dL (6.4-8.2)
[2019-12-09 03:40] LABS: ACETAMINOPHEN < 2 mcg/mL (10-30); SALICYLATE 2.7 mg/dL (2.8-20.0)
[2019-12-09 03:59] LABS: AMPHET/METH SCREEN,URINE NEGATIVE (NEGATIVE); BARBITURATE SCREEN, URINE NEGATIVE (NEGATIVE); BENZODIAZEPINES SCREEN,URINE POSITIVE (NEGATIVE); CANNABINOID SCREEN,URINE NEGATIVE (NEGATIVE); COCAINE SCREEN,URINE NEGATIVE (NEGATIVE); METHADONE SCREEN, URINE NEGATIVE (NEGATIVE); OPIATE SCREEN,URINE NEGATIVE (NEGATIVE)
[2019-12-09] MEDS ORDERED: LORazepam 2 MG TABLET PO ONE (04:00)
[2019-12-09 04:05] LABS: PHENCYCLIDINE SCREEN,URINE NEGATIVE (NEGATIVE)
[2019-12-09] MEDS ORDERED: ZOLPIDEM TARTRATE 10 MG TABLET PO PRN (05:30)
[2019-12-09] MEDS ORDERED: HALOPERIDOL 5 MG TABLET PO PRN (05:30)
[2019-12-09] MEDS: LORazepam 2 MG TABLET PO PRN ×3 (08:26→20:07)
[2019-12-09 08:58] LABS: APPEARANCE,URINE CLEAR (CLEAR); BILIRUBIN,URINE NEGATIVE (NEGATIVE); GLUCOSE, URINE (UA) NEGATIVE (NEGATIVE); KETONES,URINE NEGATIVE (NEGATIVE); LEUKOCYTE ESTERASE ,URINE NEGATIVE (NEGATIVE); NITRATE,URINE NEGATIVE (NEGATIVE); OCCULT BLOOD,URINE SMALL (NEGATIVE); PROTEIN,URINE NEGATIVE (NEGATIVE); UROBILINOGEN,URINE 0.2 mg/dL (<=1.0)
[2019-12-09 09:22] LABS: BACTERIA,URINE None Seen /HPF (None Seen); HYALINE CASTS, URINE 0-2 /LPF (None Seen); WBC,URINE None Seen /HPF (0-5)
[2019-12-09 17:20] VITALS: BP 131/105
[2019-12-09 18:25] VITALS: BP 123/90
[2019-12-09] MEDS ORDERED: LOPERAMIDE HCL 2 MG CAPSULE PO PRN (18:45)
[2019-12-09] MEDS ORDERED: MAGNESIUM HYDROXIDE SUSPENSION 30 ML UDCUP PO PRN (18:45)
[2019-12-09] MEDS ORDERED: DOCUSATE SODIUM 100 MG CAPSULE PO PRN (18:45)
[2019-12-09] MEDS ORDERED: MAG HYDROX/AL HYDROX/SIMETH ES 30 ML SUSPENSION UDCUP PO PRN (18:45)
[2019-12-09] MEDS ORDERED: IBUPROFEN 600 MG TABLET PO PRN (18:45)
[2019-12-09] MEDS ORDERED: BACITRACIN 28.4 GM OINTMENT TP PRN (18:45)
[2019-12-09] MEDS ORDERED: ALBUTEROL SULFATE HFA 90 MCG/PUFF 8 GM INHALER IH PRN (18:45)
[2019-12-09] MEDS ORDERED: ACETAMINOPHEN 325 MG TABLET PO PRN (18:45)
[2019-12-09] MEDS ORDERED: CloNIDine HCL 0.1 MG TABLET PO PRN (18:45)
[2019-12-09] MEDS ORDERED: BENZOCAINE/MENTHOL LOZENGE MM PRN (18:45)
[2019-12-09] MEDS ORDERED: PETROLATUM,WHITE 28 GM JELLY TP PRN (18:45)
[2019-12-09] MEDS ORDERED: OMEPRAZOLE 20 MG CAPSULE PO PRN (18:45)
[2019-12-09 19:20] VITALS: BP 130/93
[2019-12-09 20:00] VITALS: BP 135/97
[2019-12-09 20:20] VITALS: BP 135/97
[2019-12-10] VITALS (13 sets, daily range): BP systolic 128–143; BP diastolic 85–107
[2019-12-10 08:20] LABS: CHOL/HDL RATIO 2.5 (4.2-7.3)
[2019-12-10] MEDS: LORazepam 2 MG TABLET PO PRN ×3 (11:04→20:46)
[2019-12-10] MEDS ORDERED: ChlordiazePOXIDE HCL 25 MG CAPSULE PO PRN (19:00)
[2019-12-11] VITALS (8 sets, daily range): BP systolic 110–139; BP diastolic 80–92
[2019-12-11] MEDS: CITALOPRAM HYDROBROMIDE 20 MG TABLET PO SCH (08:46)
[2019-12-11] MEDS: ChlordiazePOXIDE HCL 25 MG CAPSULE PO SCH ×4 (08:46→20:18)
[2019-12-11] MEDS: ONDANSETRON HCL 4 MG TABLET PO PRN (16:09)
[2019-12-11] MEDS: ChlordiazePOXIDE HCL 25 MG CAPSULE PO PRN (22:47)
[2019-12-12 01:27] VITALS: BP 133/96
[2019-12-12] MEDS: CITALOPRAM HYDROBROMIDE 20 MG TABLET PO SCH (09:14)
[2019-12-12] MEDS: ChlordiazePOXIDE HCL 25 MG CAPSULE PO SCH ×4 (09:14→20:05)
[2019-12-12 10:07] VITALS: BP 122/90
[2019-12-12 12:00] VITALS: BP 132/88
[2019-12-12 16:13] VITALS: BP 131/79
[2019-12-12] MEDS: ONDANSETRON HCL 4 MG TABLET PO PRN (18:39)
[2019-12-12] MEDS: ChlordiazePOXIDE HCL 25 MG CAPSULE PO PRN (22:22)
[2019-12-13 02:49] VITALS: BP 120/85
[2019-12-13] MEDS: ChlordiazePOXIDE HCL 25 MG CAPSULE PO PRN (02:53)
[2019-12-13] MEDS ORDERED: ChlordiazePOXIDE HCL 10 MG CAPSULE PO PRN (07:00)
[2019-12-13 08:13] VITALS: BP 108/86
[2019-12-13] MEDS: ChlordiazePOXIDE HCL 10 MG CAPSULE PO SCH ×2 (08:40→13:00)
[2019-12-13] MEDS: CITALOPRAM HYDROBROMIDE 20 MG TABLET PO SCH (08:43)
[2019-12-13] MEDS ORDERED: CITA-144 PO (09:07)
[2019-12-14] MEDS ORDERED: ChlordiazePOXIDE HCL 10 MG CAPSULE PO PRN (07:00)
== END 2019-12-13 14:20 | disposition home or self-care (01) | DRG 881 ==
LOC: EMS 02:17 → B3A 05:20 → B2S 17:21
PROVIDERS: ADMIT Psychiatry & Neurology Psychiatry; ATTEND Psychiatry & Neurology Psychiatry
DX: F32.9 Major depressive disorder, single episode, unspecified (principal); F29 Unspecified psychosis not due to a substance or known physiological condition; I10 Essential (primary) hypertension; F17.210 Nicotine dependence, cigarettes, uncomplicated; F41.8 Other specified anxiety disorders; G47.00 Insomnia, unspecified; K21.9 Gastro-esophageal reflux disease without esophagitis; K59.00 Constipation, unspecified; F10.10 Alcohol abuse, uncomplicated; Z82.3 Family history of stroke
CPT/HCPCS: 87081; G0480; G0481; Q0162

== ENCOUNTER 2019-12-16 21:44 | Emergency (ER) | payer MEDICAID, OTHER ==
[~2019-12-16] VITALS: Ht 175.3 cm; Wt 90.9 kg
[~2019-12-16 21:44] MED LIST changes: +CITA-144 PO; -GABA-1201 PO; -NALT50TA6 PO; -PARO10TA89 PO
[2019-12-16] MEDS ORDERED: ALPR0.5T8 PO (22:28)
[2019-12-16] MEDS ORDERED: FLUO-191 PO (22:28)
[2019-12-16 22:44] LABS: AMPHET/METH SCREEN,URINE NEGATIVE (NEGATIVE); BARBITURATE SCREEN, URINE NEGATIVE (NEGATIVE); BENZODIAZEPINES SCREEN,URINE POSITIVE (NEGATIVE); CANNABINOID SCREEN,URINE NEGATIVE (NEGATIVE); COCAINE SCREEN,URINE NEGATIVE (NEGATIVE); METHADONE SCREEN, URINE NEGATIVE (NEGATIVE); OPIATE SCREEN,URINE NEGATIVE (NEGATIVE)
[2019-12-16 22:46] LABS: BASOPHILS % (AUTO) 0.9 % (0.0-2.0); EOSINOPHILS % (AUTO) 3.8 % (1.0-6.0); HEMATOCRIT 41.4 % (41-53); HEMOGLOBIN 13.5 g/dL (13.5-17.5); LYMPHOCYTES # (AUTO) 1.6 K/uL (1.0-4.8); LYMPHOCYTES % (AUTO) 39.2 % (22.0-44.0); MEAN CORPUSCULAR HEMOGLOBIN 29.5 pg (26.0-34.0); MEAN CORPUSCULAR HGB CONC 32.7 G/dL (31.0-37.0); MEAN CORPUSCULAR VOLUME 90 fL (80-100); MONOCYTES # (AUTO) 0.7 K/uL (0.1-1.0); MONOCYTES % (AUTO) 17.7 % (2.0-9.0); NEUTROPHILS # (AUTO) 1.6 K/uL (1.8-7.7); NEUTROPHILS % (AUTO) 38.4 % (40.0-70.0); PLATELET COUNT (AUTO) 186 K/uL (150-450); RED BLOOD CELL COUNT(AUTO) 4.59 MIL/uL (4.50-5.90)
[2019-12-16 22:46] LABS: PHENCYCLIDINE SCREEN,URINE NEGATIVE (NEGATIVE)
[2019-12-16 22:53] LABS: ANION GAP 10 mmol/L (8-16); CALCIUM, TOTAL 8.7 mg/dL (8.8-10.5); CARBON DIOXIDE 28 mmol/L (22-29); CHLORIDE 104 mmol/L (98-107); CREATININE 0.91 mg/dL (0.60-1.30); GLOMERULAR FILTR. RATE CALC > 60 mL/min (>60); GLUCOSE,RANDOM 94 mg/dL (70-110); POTASSIUM 4.2 mmol/L (3.5-5.1); SODIUM SERUM 142 mmol/L (136-145); UREA NITROGEN, BLOOD 9 mg/dL (7-18)
[2019-12-16 22:59] LABS: ALANINE AMINOTRANSFERASE 42 U/L (12-78); ALBUMIN 3.6 g/dL (3.4-5.0); ALKALINE PHOSPHATASE 98 U/L (46-116); ASPARTATE AMINOTRANSFERASE 28 U/L (15-37); BILIRUBIN,TOTAL 0.2 mg/dL (0.1-1.0); TOTAL PROTEIN, SERUM 7.4 g/dL (6.4-8.2)
[2019-12-16 23:45] VITALS: BP 115/86
[2019-12-17] MEDS ORDERED: GABA-1181 PO (14:14)
== END 2019-12-16 23:52 | disposition home or self-care (01) ==
LOC: EMS 21:44
DX: F32.9 Major depressive disorder, single episode, unspecified (principal); F10.10 Alcohol abuse, uncomplicated; F41.9 Anxiety disorder, unspecified; F17.210 Nicotine dependence, cigarettes, uncomplicated
CPT/HCPCS: 36415; 80053; 80307; 85025; 99285; G0480

== ENCOUNTER 2019-12-17 13:49 | Emergency (ER) | payer OTHER ==
[~2019-12-17] VITALS: Ht 175.3 cm; Wt 90.0 kg
[~2019-12-17 13:49] MED LIST changes: +ALPR0.5T8 PO; -CITA-144 PO; +FLUO-191 PO
[2019-12-17] MEDS ORDERED: GABA-1181 PO (14:14)
[2019-12-17 14:36] LABS: BASOPHILS % (AUTO) 1.2 % (0.0-2.0); EOSINOPHILS % (AUTO) 4.3 % (1.0-6.0); HEMATOCRIT 38.5 % (41-53); LYMPHOCYTES # (AUTO) 1.2 K/uL (1.0-4.8); LYMPHOCYTES % (AUTO) 37.4 % (22.0-44.0); MEAN CORPUSCULAR HEMOGLOBIN 30.4 pg (26.0-34.0); MEAN CORPUSCULAR HGB CONC 33.8 G/dL (31.0-37.0); MEAN CORPUSCULAR VOLUME 90 fL (80-100); MONOCYTES # (AUTO) 0.5 K/uL (0.1-1.0); MONOCYTES % (AUTO) 16.9 % (2.0-9.0); NEUTROPHILS # (AUTO) 1.3 K/uL (1.8-7.7); NEUTROPHILS % (AUTO) 40.2 % (40.0-70.0); PLATELET COUNT (AUTO) 168 K/uL (150-450); RED BLOOD CELL COUNT(AUTO) 4.27 MIL/uL (4.50-5.90); RED CELL DISTRIBUTION WIDTH 16.3 % (11.5-14.5)
[2019-12-17 14:46] LABS: ANION GAP 5 mmol/L (8-16); CARBON DIOXIDE 29 mmol/L (22-29); CHLORIDE 108 mmol/L (98-107); CREATININE 0.85 mg/dL (0.60-1.30); GLOMERULAR FILTR. RATE CALC > 60 mL/min (>60); GLUCOSE,RANDOM 79 mg/dL (70-110); POTASSIUM 4.2 mmol/L (3.5-5.1); SODIUM SERUM 142 mmol/L (136-145); UREA NITROGEN, BLOOD 8 mg/dL (7-18)
[2019-12-17 14:51] LABS: AMPHET/METH SCREEN,URINE NEGATIVE (NEGATIVE); BARBITURATE SCREEN, URINE NEGATIVE (NEGATIVE); BENZODIAZEPINES SCREEN,URINE POSITIVE (NEGATIVE); CANNABINOID SCREEN,URINE NEGATIVE (NEGATIVE); COCAINE SCREEN,URINE NEGATIVE (NEGATIVE); METHADONE SCREEN, URINE NEGATIVE (NEGATIVE); OPIATE SCREEN,URINE NEGATIVE (NEGATIVE)
[2019-12-17 14:52] LABS: PHENCYCLIDINE SCREEN,URINE NEGATIVE (NEGATIVE)
[2019-12-17 14:52] LABS: ALANINE AMINOTRANSFERASE 37 U/L (12-78); ALBUMIN 3.3 g/dL (3.4-5.0); ALKALINE PHOSPHATASE 80 U/L (46-116); ASPARTATE AMINOTRANSFERASE 28 U/L (15-37); BILIRUBIN,TOTAL 0.2 mg/dL (0.1-1.0)
[2019-12-17 15:46] VITALS: BP 139/77
== END 2019-12-17 16:22 | disposition home or self-care (01) ==
LOC: EMS 13:50
DX: F32.9 Major depressive disorder, single episode, unspecified (principal); F10.129 Alcohol abuse with intoxication, unspecified; F41.9 Anxiety disorder, unspecified; Z79.899 Other long term (current) drug therapy; F17.210 Nicotine dependence, cigarettes, uncomplicated; Y90.7 Blood alcohol level of 200-239 mg/100 ml
CPT/HCPCS: 36415; 80053; 80307; 85025; 99285; G0480

== ENCOUNTER 2022-05-20 16:47 | Inpatient (IN) | payer MEDICAID, OTHER ==
[~2022-05-20] VITALS: Ht 175.3 cm; Wt 101.9 kg
[~2022-05-20 16:47] MED LIST changes: +ALPR-707 PO; -ALPR0.5T8 PO; +FLUO-177 PO; -FLUO-191 PO; +GABA-1181 PO
[2022-05-20 19:24] LABS: BASOPHILS % (AUTO) 0.7 % (0.0-2.0); EOSINOPHILS % (AUTO) 1.4 % (1.0-6.0); HEMATOCRIT 38.9 % (41-53); HEMOGLOBIN 13.2 g/dL (13.5-17.5); LYMPHOCYTES # (AUTO) 1.7 K/uL (1.0-4.8); LYMPHOCYTES % (AUTO) 40.2 % (22.0-44.0); MEAN CORPUSCULAR HEMOGLOBIN 29.6 pg (26.0-34.0); MEAN CORPUSCULAR HGB CONC 33.9 G/dL (31.0-37.0); MEAN CORPUSCULAR VOLUME 87 fL (80-100); MONOCYTES # (AUTO) 0.4 K/uL (0.1-1.0); MONOCYTES % (AUTO) 8.9 % (2.0-9.0); NEUTROPHILS % (AUTO) 48.8 % (40.0-70.0); PLATELET COUNT (AUTO) 240 K/uL (150-450); RED BLOOD CELL COUNT(AUTO) 4.46 MIL/uL (4.50-5.90); RED CELL DISTRIBUTION WIDTH 15.9 % (11.5-14.5)
[2022-05-20 19:33] LABS: ANION GAP 9 mmol/L (8-16); CALCIUM, TOTAL 8.2 mg/dL (8.8-10.5); CARBON DIOXIDE 27 mmol/L (22-29); CHLORIDE 109 mmol/L (98-107); CREATININE 0.74 mg/dL (0.60-1.30); GLUCOSE,RANDOM 101 mg/dL (70-110); SODIUM SERUM 145 mmol/L (136-145); UREA NITROGEN, BLOOD 9 mg/dL (7-18)
[2022-05-20 19:34] LABS: GLOMERULAR FILTR. RATE CALC > 60 mL/min (>60)
[2022-05-20 19:39] LABS: ALANINE AMINOTRANSFERASE 34 U/L (12-78); ALBUMIN 3.5 g/dL (3.4-5.0); ALKALINE PHOSPHATASE 120 U/L (46-116); ASPARTATE AMINOTRANSFERASE 38 U/L (15-37); BILIRUBIN,TOTAL 0.4 mg/dL (0.1-1.0)
[2022-05-20 20:50] LABS: COVID AG,FIA SOURCE NASOPHARYNGEAL
[2022-05-20 21:02] LABS: AMPHET/METH SCREEN,URINE NEGATIVE (NEGATIVE); BARBITURATE SCREEN, URINE NEGATIVE (NEGATIVE); BENZODIAZEPINES SCREEN,URINE NEGATIVE (NEGATIVE); CANNABINOID SCREEN,URINE NEGATIVE (NEGATIVE); COCAINE SCREEN,URINE NEGATIVE (NEGATIVE); METHADONE SCREEN, URINE NEGATIVE (NEGATIVE); OPIATE SCREEN,URINE NEGATIVE (NEGATIVE)
[2022-05-20 21:03] LABS: PHENCYCLIDINE SCREEN,URINE NEGATIVE (NEGATIVE)
[2022-05-20] MEDS ORDERED: HALOPERIDOL 5 MG TABLET PO ONE (21:15)
[2022-05-20] MEDS ORDERED: LORazepam 2 MG TABLET PO ONE (21:15)
[2022-05-20] MEDS ORDERED: DiphenhydrAMINE HCL 25 MG CAPSULE PO ONE (21:15)
[2022-05-20] MEDS ORDERED: HALOPERIDOL 5 MG TABLET PO PRN (21:30)
[2022-05-20 21:32] LABS: APPEARANCE,URINE CLEAR (CLEAR); BILIRUBIN,URINE NEGATIVE (NEGATIVE); GLUCOSE, URINE (UA) NEGATIVE (NEGATIVE); LEUKOCYTE ESTERASE ,URINE NEGATIVE (NEGATIVE); NITRATE,URINE NEGATIVE (NEGATIVE); OCCULT BLOOD,URINE TRACE (NEGATIVE); PH,URINE 6.5 (5.0-8.0); PROTEIN,URINE NEGATIVE (NEGATIVE); SPECIFIC GRAVITIY, URINE 1.017 (1.003-1.030); UROBILINOGEN,URINE <=1.0 mg/dL (<=1.0)
[2022-05-20 21:42] LABS: BACTERIA,URINE None Seen /HPF (None Seen); RBC,URINE 0-2 /HPF (0-2); SQUAMOUS EPITHELIAL CELL,UR None Seen /LPF (None Seen); WBC,URINE None Seen /HPF (0-5)
[2022-05-21 02:25] VITALS: BP 137/103
[2022-05-21] MEDS: LORazepam 2 MG TABLET PO PRN ×3 (02:32→14:59)
[2022-05-21] MEDS ORDERED: NICOTINE 21 MG/24 HOUR PATCH TD PRN (07:00)
[2022-05-21] MEDS: GABAPENTIN 300 MG CAPSULE PO SCH (09:11)
[2022-05-21 10:09] VITALS: BP 129/83
[2022-05-21] MEDS ORDERED: MAG HYDROX/AL HYDROX/SIMETH ES 30 ML SUSPENSION UDCUP PO PRN (12:45)
[2022-05-21] MEDS ORDERED: MAGNESIUM HYDROXIDE SUSPENSION 30 ML UDCUP PO PRN (12:45)
[2022-05-21] MEDS ORDERED: PETROLATUM,WHITE 28 GM JELLY TP PRN (12:45)
[2022-05-21] MEDS ORDERED: GuaiFENesin/D-METHORPHAN [SUGAR-FREE] 200-20MG/10 ML SYRUP UDCUP PO PRN (12:45)
[2022-05-21] MEDS ORDERED: LOPERAMIDE HCL 2 MG CAPSULE PO PRN (12:45)
[2022-05-21] MEDS ORDERED: ONDANSETRON HCL 4 MG TABLET PO PRN (12:45)
[2022-05-21] MEDS ORDERED: ALBUTEROL SULFATE HFA 90 MCG/PUFF 8 GM INHALER IH PRN (12:45)
[2022-05-21] MEDS ORDERED: DOCUSATE SODIUM 100 MG CAPSULE PO PRN (12:45)
[2022-05-21] MEDS ORDERED: CloNIDine HCL 0.1 MG TABLET PO PRN (12:45)
[2022-05-21 12:53] VITALS: BP 126/84
[2022-05-21] MEDS: IBUPROFEN 400 MG TABLET PO PRN (12:53)
[2022-05-21] MEDS ORDERED: ESCI20TA37 PO (12:58)
[2022-05-21] MEDS ORDERED: CLON1TAB12 PO (12:58)
[2022-05-21] MEDS: ESCITALOPRAM OXALATE 20 MG TABLET PO SCH (13:07)
[2022-05-21 13:53] VITALS: BP 124/78
[2022-05-21 23:15] VITALS: BP 130/90
[2022-05-21] MEDS: ACETAMINOPHEN 325 MG TABLET PO PRN (23:18)
[2022-05-21] MEDS: ZOLPIDEM TARTRATE 10 MG TABLET PO PRN (23:18)
[2022-05-22 06:58] LABS: BASOPHILS % (AUTO) 0.4 % (0.0-2.0); EOSINOPHILS % (AUTO) 2.9 % (1.0-6.0); HEMATOCRIT 37.9 % (41-53); HEMOGLOBIN 12.6 g/dL (13.5-17.5); LYMPHOCYTES # (AUTO) 1.5 K/uL (1.0-4.8); LYMPHOCYTES % (AUTO) 31.5 % (22.0-44.0); MEAN CORPUSCULAR HEMOGLOBIN 28.7 pg (26.0-34.0); MEAN CORPUSCULAR HGB CONC 33.2 G/dL (31.0-37.0); MEAN CORPUSCULAR VOLUME 87 fL (80-100); MONOCYTES # (AUTO) 0.5 K/uL (0.1-1.0); MONOCYTES % (AUTO) 9.5 % (2.0-9.0); NEUTROPHILS # (AUTO) 2.7 K/uL (1.8-7.7); NEUTROPHILS % (AUTO) 55.7 % (40.0-70.0); PLATELET COUNT (AUTO) 187 K/uL (150-450); RED BLOOD CELL COUNT(AUTO) 4.38 MIL/uL (4.50-5.90); RED CELL DISTRIBUTION WIDTH 15.8 % (11.5-14.5)
[2022-05-22 07:18] LABS: HEMOGLOBIN A1C 5.7 % (3.8-5.6)
[2022-05-22 07:21] LABS: THYROID STIMULATING HORMONE 1.6 uIU/mL (0.36-3.74)
[2022-05-22 08:00] VITALS: BP 117/67
[2022-05-22] MEDS: GABAPENTIN 300 MG CAPSULE PO SCH (08:42)
[2022-05-22] MEDS: ESCITALOPRAM OXALATE 20 MG TABLET PO SCH (08:43)
[2022-05-22 13:45] VITALS: BP 124/76
[2022-05-22] MEDS: LORazepam 2 MG TABLET PO PRN ×2 (13:45→21:52)
[2022-05-22] MEDS: ACETAMINOPHEN 325 MG TABLET PO PRN (13:45)
[2022-05-22 14:45] VITALS: BP 126/82
[2022-05-22 16:00] VITALS: BP 128/98
[2022-05-22 21:50] VITALS: BP 135/92
[2022-05-22] MEDS: IBUPROFEN 400 MG TABLET PO PRN (21:52)
[2022-05-22] MEDS: ZOLPIDEM TARTRATE 10 MG TABLET PO PRN (22:24)
[2022-05-23 08:00] VITALS: BP 127/70
[2022-05-23] MEDS: MULTIVITAMINS WITH MINERALS, THERAPEUTIC TABLET PO SCH (08:47)
[2022-05-23] MEDS: GABAPENTIN 300 MG CAPSULE PO SCH (08:47)
[2022-05-23] MEDS: ESCITALOPRAM OXALATE 20 MG TABLET PO SCH (08:47)
[2022-05-23] MEDS: THIAMINE 100 MG TABLET PO SCH (08:48)
[2022-05-23] MEDS: FOLIC ACID 1 MG TABLET PO SCH (08:48)
[2022-05-23] MEDS: LORazepam 2 MG TABLET PO PRN ×3 (08:48→21:51)
[2022-05-23 15:40] VITALS: BP 118/76
[2022-05-23] MEDS: ACETAMINOPHEN 325 MG TABLET PO PRN (15:40)
[2022-05-23 16:24] VITALS: BP 114/75
[2022-05-23] MEDS: ZOLPIDEM TARTRATE 10 MG TABLET PO PRN (20:44)
[2022-05-24 03:10] VITALS: BP 101/60
[2022-05-24] MEDS: IBUPROFEN 400 MG TABLET PO PRN (03:12)
[2022-05-24 09:12] VITALS: BP 108/74
[2022-05-24] MEDS: ESCITALOPRAM OXALATE 20 MG TABLET PO SCH (09:16)
[2022-05-24] MEDS: THIAMINE 100 MG TABLET PO SCH (09:16)
[2022-05-24] MEDS: MULTIVITAMINS WITH MINERALS, THERAPEUTIC TABLET PO SCH (09:16)
[2022-05-24] MEDS: GABAPENTIN 300 MG CAPSULE PO SCH (09:16)
[2022-05-24] MEDS: FOLIC ACID 1 MG TABLET PO SCH (09:16)
[2022-05-24] MEDS: LORazepam 2 MG TABLET PO PRN ×2 (11:53→21:07)
[2022-05-24 16:22] VITALS: BP 130/75
[2022-05-24 20:18] VITALS: BP 128/80
[2022-05-24] MEDS: ACETAMINOPHEN 325 MG TABLET PO PRN (20:20)
[2022-05-24] MEDS: ZOLPIDEM TARTRATE 10 MG TABLET PO PRN (22:19)
[2022-05-25] MEDS: FOLIC ACID 1 MG TABLET PO SCH (08:22)
[2022-05-25] MEDS: ESCITALOPRAM OXALATE 20 MG TABLET PO SCH (08:22)
[2022-05-25] MEDS: MULTIVITAMINS WITH MINERALS, THERAPEUTIC TABLET PO SCH (08:22)
[2022-05-25] MEDS: GABAPENTIN 300 MG CAPSULE PO SCH (08:23)
[2022-05-25] MEDS: THIAMINE 100 MG TABLET PO SCH (08:23)
[2022-05-25 08:25] VITALS: BP 115/80
[2022-05-25] MEDS: LORazepam 2 MG TABLET PO PRN ×2 (09:08→21:16)
[2022-05-25 14:15] VITALS: BP 122/78
[2022-05-25] MEDS: ACETAMINOPHEN 325 MG TABLET PO PRN (14:15)
[2022-05-25 16:04] VITALS: BP 122/91
[2022-05-25] MEDS: ZOLPIDEM TARTRATE 10 MG TABLET PO PRN (21:16)
[2022-05-25 21:18] VITALS: BP 126/82
[2022-05-26 08:38] VITALS: BP 123/84
[2022-05-26] MEDS: THIAMINE 100 MG TABLET PO SCH (08:40)
[2022-05-26] MEDS: FOLIC ACID 1 MG TABLET PO SCH (08:40)
[2022-05-26] MEDS: GABAPENTIN 300 MG CAPSULE PO SCH (08:40)
[2022-05-26] MEDS: MULTIVITAMINS WITH MINERALS, THERAPEUTIC TABLET PO SCH (08:40)
[2022-05-26] MEDS: ESCITALOPRAM OXALATE 20 MG TABLET PO SCH (08:40)
[2022-05-26] MEDS: LORazepam 2 MG TABLET PO PRN ×2 (08:49→21:07)
[2022-05-26] MEDS: IBUPROFEN 400 MG TABLET PO PRN (14:48)
[2022-05-26 16:30] VITALS: BP 120/80
[2022-05-26] MEDS ORDERED: GABA-1181 PO (16:30)
[2022-05-26] MEDS ORDERED: ESCI20TA87 PO (16:30)
[2022-05-26] MEDS: ZOLPIDEM TARTRATE 10 MG TABLET PO PRN (21:07)
[2022-05-27 08:07] LABS: COVID AG,FIA SOURCE NASAL SWAB
[2022-05-27] MEDS: THIAMINE 100 MG TABLET PO SCH (08:25)
[2022-05-27] MEDS: GABAPENTIN 300 MG CAPSULE PO SCH (08:25)
[2022-05-27] MEDS: FOLIC ACID 1 MG TABLET PO SCH (08:25)
[2022-05-27] MEDS: MULTIVITAMINS WITH MINERALS, THERAPEUTIC TABLET PO SCH (08:25)
[2022-05-27] MEDS: ESCITALOPRAM OXALATE 20 MG TABLET PO SCH (08:25)
[2022-05-27] MEDS: LORazepam 2 MG TABLET PO PRN (08:27)
[2022-05-27 08:47] VITALS: BP 140/92
== END 2022-05-27 13:15 | disposition home or self-care (01) | DRG 751 ==
LOC: EMS 16:56 → 3EI 05-21 01:28
PROVIDERS: ADMIT Psychiatry & Neurology Psychiatry; ATTEND Psychiatry & Neurology Psychiatry
DX: F33.2 Major depressive disorder, recurrent severe without psychotic features (principal); R45.851 Suicidal ideations; K70.30 Alcoholic cirrhosis of liver without ascites; F20.9 Schizophrenia, unspecified; I10 Essential (primary) hypertension; K21.9 Gastro-esophageal reflux disease without esophagitis; D64.9 Anemia, unspecified; D72.819 Decreased white blood cell count, unspecified; F10.229 Alcohol dependence with intoxication, unspecified; F10.239 Alcohol dependence with withdrawal, unspecified; F41.9 Anxiety disorder, unspecified; Z20.822 Contact with and (suspected) exposure to COVID-19; Z79.899 Other long term (current) drug therapy; Z87.891 Personal history of nicotine dependence
CPT/HCPCS: 80053; 80307; 81001; 83036; 84443; 85025; 99285; G0480

== ENCOUNTER 2023-06-22 16:01 | Inpatient (IN) | payer MEDICAID ==
[~2023-06-22] VITALS: Ht 175.3 cm; Wt 89.8 kg
[~2023-06-22 16:01] MED LIST changes: -ALPR-707 PO; +AMLO-257 PO; +BUSP15 PO; +ESCI20TA87 PO; -FLUO-177 PO; -GABA-1181 PO
[2023-06-22 17:25] LABS: APPEARANCE,URINE CLEAR (CLEAR); BILIRUBIN,URINE NEGATIVE (NEGATIVE); COLOR,URINE COLORLESS (YELLOW); GLUCOSE, URINE (UA) NEGATIVE (NEGATIVE); KETONES,URINE NEGATIVE (NEGATIVE); LEUKOCYTE ESTERASE ,URINE NEGATIVE (NEGATIVE); NITRATE,URINE NEGATIVE (NEGATIVE); OCCULT BLOOD,URINE NEGATIVE (NEGATIVE); PROTEIN,URINE NEGATIVE (NEGATIVE); SPECIFIC GRAVITIY, URINE 1.005 (1.003-1.030); UROBILINOGEN,URINE <=1.0 mg/dL (<=1.0)
[2023-06-22 17:31] LABS: ALCOHOL, URINE DRUG SCREEN POSITIVE (NEGATIVE); AMPHET/METH SCREEN,URINE NEGATIVE (NEGATIVE); BARBITURATE SCREEN, URINE NEGATIVE (NEGATIVE); BENZODIAZEPINES SCREEN,URINE POSITIVE (NEGATIVE); CANNABINOID SCREEN,URINE NEGATIVE (NEGATIVE); COCAINE SCREEN,URINE NEGATIVE (NEGATIVE); METHADONE SCREEN, URINE NEGATIVE (NEGATIVE); OPIATE SCREEN,URINE NEGATIVE (NEGATIVE); PHENCYCLIDINE SCREEN,URINE NEGATIVE (NEGATIVE)
[2023-06-22 17:44] LABS: BASOPHILS % (AUTO) 0.6 % (0.0-2.0); EOSINOPHILS % (AUTO) 0.9 % (1.0-6.0); HEMATOCRIT 40.5 % (41-53); HEMOGLOBIN 13.6 g/dL (13.5-17.5); LYMPHOCYTES # (AUTO) 2.2 K/uL (1.0-4.8); MEAN CORPUSCULAR HEMOGLOBIN 31.2 pg (26.0-34.0); MEAN CORPUSCULAR HGB CONC 33.6 G/dL (31.0-37.0); MEAN CORPUSCULAR VOLUME 93 fL (80-100); MONOCYTES # (AUTO) 0.3 K/uL (0.1-1.0); MONOCYTES % (AUTO) 6.1 % (2.0-9.0); NEUTROPHILS % (AUTO) 53.4 % (40.0-70.0); PLATELET COUNT (AUTO) 265 K/uL (150-450); RED BLOOD CELL COUNT(AUTO) 4.36 MIL/uL (4.50-5.90); RED CELL DISTRIBUTION WIDTH 14.6 % (11.5-14.5); WHITE BLOOD COUNT (AUTO) 5.7 K/uL (4.5-11.0)
[2023-06-22 17:55] LABS: ANION GAP 11 mmol/L (8-16); CALCIUM, TOTAL 8.4 mg/dL (8.8-10.5); CARBON DIOXIDE 27 mmol/L (22-29); CHLORIDE 106 mmol/L (98-107); CREATININE 0.77 mg/dL (0.60-1.30); GLOMERULAR FILTR. RATE CALC > 60 mL/min (>60); GLUCOSE,RANDOM 88 mg/dL (70-110); POTASSIUM 4.1 mmol/L (3.5-5.1); SODIUM SERUM 144 mmol/L (136-145); UREA NITROGEN, BLOOD 8 mg/dL (7-18)
[2023-06-22 18:01] LABS: ALANINE AMINOTRANSFERASE 30 U/L (12-78); ALBUMIN 3.3 g/dL (3.4-5.0); ALKALINE PHOSPHATASE 125 U/L (46-116); ASPARTATE AMINOTRANSFERASE 27 U/L (15-37); BILIRUBIN,TOTAL 0.4 mg/dL (0.1-1.0); TOTAL PROTEIN, SERUM 6.4 g/dL (6.4-8.2)
[2023-06-22 18:03] LABS: COVID AG,FIA SOURCE NPH
[2023-06-22 18:25] LABS: ALCOHOL, BLOOD (SERUM) 235 mg/dL (0-10)
[2023-06-22 18:52] LABS: SARS-COV2 (COVID) ANTIGEN,FIA Negative (Negative)
[2023-06-23] VITALS (13 sets, daily range): BP systolic 115–146; BP diastolic 62–90; PULSE 63–98; RESP 17–18; TEMP 97.3–98; O2SAT 96–100
[2023-06-23] MEDS: ZOLPIDEM TARTRATE 10 MG TABLET PO PRN (02:54)
[2023-06-23] MEDS: LORazepam 2 MG TABLET PO PRN (10:21)
[2023-06-23] MEDS: BusPIRone HCL 10 MG TABLET PO SCH (13:39)
[2023-06-23] MEDS ORDERED: ONDANSETRON HCL 4 MG TABLET PO PRN (15:45)
[2023-06-23] MEDS ORDERED: MAG HYDROX/ALUMINUM HYD/SIMETH ES 30 ML SUSPENSION UDCUP PO PRN (15:45)
[2023-06-23] MEDS ORDERED: ALBUTEROL SULFATE HFA 90 MCG/PUFF 8 GM INHALER IH PRN (15:45)
[2023-06-23] MEDS ORDERED: NICOTINE 14 MG/24 HOUR PATCH TD PRN (15:45)
[2023-06-23] MEDS ORDERED: PETROLATUM,WHITE 28 GM JELLY TP PRN (15:45)
[2023-06-23] MEDS ORDERED: LOPERAMIDE HCL 2 MG CAPSULE PO PRN (15:45)
[2023-06-23] MEDS ORDERED: MAGNESIUM HYDROXIDE SUSPENSION 30 ML UDCUP PO PRN (15:45)
[2023-06-23] MEDS ORDERED: DOCUSATE SODIUM 100 MG CAPSULE PO PRN (15:45)
[2023-06-23] MEDS ORDERED: GuaiFENesin/D-METHORPHAN [SUGAR-FREE] 200-20MG/10 ML SYRUP UDCUP PO PRN (15:45)
[2023-06-23] MEDS ORDERED: CloNIDine HCL 0.1 MG TABLET PO PRN (15:45)
[2023-06-23] MEDS: MIRTAZAPINE 15 MG TABLET PO SCH (20:14)
[2023-06-24 02:00] VITALS: BP 125/79; PULSE 69; RESP 18; TEMP 98.1; O2SAT 98
[2023-06-24 08:17] VITALS: BP 124/87; PULSE 77; RESP 18; TEMP 98; O2SAT 100
[2023-06-24 08:45] LABS: CHOL/HDL RATIO 3.5 (4.2-7.3); THYROID STIMULATING HORMONE 1.18 uIU/mL (0.36-3.74)
[2023-06-24] MEDS: AmLODIPine BESYLATE 5 MG TABLET PO SCH (09:26)
[2023-06-24 15:23] VITALS: BP 115/83; RESP 18; O2SAT 100
[2023-06-24] MEDS: ACETAMINOPHEN 325 MG TABLET PO PRN (15:27)
[2023-06-24 16:27] VITALS: RESP 17; O2SAT 100
[2023-06-24 20:35] VITALS: BP 125/86; PULSE 74; RESP 19; TEMP 99; O2SAT 98
[2023-06-24] MEDS: HALOPERIDOL 5 MG TABLET PO PRN (22:11)
[2023-06-25] VITALS (7 sets, daily range): BP systolic 101–141; BP diastolic 56–82; PULSE 73–87; RESP 17–18; TEMP 98–98.3; O2SAT 99–100
[2023-06-25 08:11] LABS: APPEARANCE,URINE CLEAR (CLEAR); BILIRUBIN,URINE NEGATIVE (NEGATIVE); COLOR,URINE YELLOW (YELLOW); GLUCOSE, URINE (UA) NEGATIVE (NEGATIVE); KETONES,URINE NEGATIVE (NEGATIVE); LEUKOCYTE ESTERASE ,URINE NEGATIVE (NEGATIVE); NITRATE,URINE NEGATIVE (NEGATIVE); OCCULT BLOOD,URINE NEGATIVE (NEGATIVE); PH,URINE 6.5 (5.0-8.0); PH,URINE DRUG SCREEN 6.5 (5.0-8.0); PROTEIN,URINE NEGATIVE (NEGATIVE); SPECIFIC GRAVITIY, URINE 1.017 (1.003-1.030); UROBILINOGEN,URINE <=1.0 mg/dL (<=1.0)
[2023-06-25 08:16] LABS: ALCOHOL, URINE DRUG SCREEN NEGATIVE (NEGATIVE); AMPHET/METH SCREEN,URINE NEGATIVE (NEGATIVE); BARBITURATE SCREEN, URINE NEGATIVE (NEGATIVE); BENZODIAZEPINES SCREEN,URINE POSITIVE (NEGATIVE); CANNABINOID SCREEN,URINE NEGATIVE (NEGATIVE); COCAINE SCREEN,URINE NEGATIVE (NEGATIVE); METHADONE SCREEN, URINE NEGATIVE (NEGATIVE); OPIATE SCREEN,URINE NEGATIVE (NEGATIVE); PHENCYCLIDINE SCREEN,URINE NEGATIVE (NEGATIVE)
[2023-06-25] MEDS: IBUPROFEN 400 MG TABLET PO PRN (21:41)
[2023-06-26 08:55] VITALS: BP 117/72; PULSE 62; RESP 18; TEMP 97.8; O2SAT 98
[2023-06-26] MEDS ORDERED: BUSP10TA23 PO ×2 (15:39→17:48)
[2023-06-26] MEDS ORDERED: MIRT-89 PO ×2 (15:40→17:48)
== END 2023-06-26 16:15 | disposition home or self-care (01) | DRG 751 ==
LOC: EMS 16:01 → B2S 06-23 00:02 → UNDOADMIN 06-23 00:02 → B2S 06-23 00:03
PROVIDERS: ADMIT Psychiatry & Neurology Psychiatry; ATTEND Psychiatry & Neurology Psychiatry
DX: F33.2 Major depressive disorder, recurrent severe without psychotic features (principal); R45.851 Suicidal ideations; Z91.148 Patient's other noncompliance with medication regimen for other reason; E78.5 Hyperlipidemia, unspecified; F20.9 Schizophrenia, unspecified; K21.9 Gastro-esophageal reflux disease without esophagitis; I10 Essential (primary) hypertension; Z20.822 Contact with and (suspected) exposure to COVID-19; F41.9 Anxiety disorder, unspecified; F10.10 Alcohol abuse, uncomplicated; Z87.891 Personal history of nicotine dependence; Z79.899 Other long term (current) drug therapy
CPT/HCPCS: 80053; 80061; 80307; 81003; 83036; 84443; 85025; 99285; G0480

== ENCOUNTER 2024-03-19 02:03 | Inpatient (IN) | payer MEDICAID, OTHER ==
[~2024-03-19] VITALS: Ht 175.3 cm; Wt 93.9 kg
[2024-03-19] VITALS (7 sets, daily range): BP systolic 117–148; BP diastolic 73–87; PULSE 75–88; RESP 16–18; TEMP 97.3–98.5; O2SAT 95–99
[~2024-03-19 02:03] MED LIST changes: +BUSP10TA23 PO; -BUSP15 PO; -ESCI20TA87 PO; +MIRT-89 PO
[2024-03-19 02:30] LABS: BASOPHILS % (AUTO) 0.7 % (0.0-2.0); EOSINOPHILS % (AUTO) 1.4 % (1.0-6.0); HEMATOCRIT 43.5 % (41-53); HEMOGLOBIN 14.7 g/dL (13.5-17.5); LYMPHOCYTES # (AUTO) 2.3 K/uL (1.0-4.8); LYMPHOCYTES % (AUTO) 40.4 % (22.0-44.0); MEAN CORPUSCULAR HGB CONC 33.8 G/dL (31.0-37.0); MEAN CORPUSCULAR VOLUME 92 fL (80-100); MONOCYTES # (AUTO) 0.5 K/uL (0.1-1.0); NEUTROPHILS # (AUTO) 2.8 K/uL (1.8-7.7); NEUTROPHILS % (AUTO) 48.5 % (40.0-70.0); PLATELET COUNT (AUTO) 289 K/uL (150-450); RED BLOOD CELL COUNT(AUTO) 4.74 MIL/uL (4.50-5.90); RED CELL DISTRIBUTION WIDTH 14.5 % (11.5-14.5); WHITE BLOOD COUNT (AUTO) 5.7 K/uL (4.5-11.0)
[2024-03-19] MEDS ORDERED: FLUO-342 PO (02:34)
[2024-03-19] MEDS ORDERED: QUET100T PO (02:34)
[2024-03-19] MEDS ORDERED: ATOR10TA PO (02:34)
[2024-03-19] MEDS ORDERED: GABA-1216 PO (02:34)
[2024-03-19 02:40] LABS: ANION GAP 14 mmol/L (8-16); CARBON DIOXIDE 25 mmol/L (22-29); CHLORIDE 105 mmol/L (98-107); CREATININE 0.71 mg/dL (0.60-1.30); GLOMERULAR FILTR. RATE CALC > 60 mL/min (>60); GLUCOSE,RANDOM 89 mg/dL (70-110); POTASSIUM 4.1 mmol/L (3.5-5.1); SODIUM SERUM 144 mmol/L (136-145); UREA NITROGEN, BLOOD 10 mg/dL (7-18)
[2024-03-19 02:51] LABS: ALCOHOL, BLOOD (SERUM) 158 mg/dL (0-10)
[2024-03-19 03:25] LABS: ALCOHOL, URINE DRUG SCREEN POSITIVE (NEGATIVE); AMPHET/METH SCREEN,URINE NEGATIVE (NEGATIVE); BARBITURATE SCREEN, URINE NEGATIVE (NEGATIVE); BENZODIAZEPINES SCREEN,URINE POSITIVE (NEGATIVE); CANNABINOID SCREEN,URINE NEGATIVE (NEGATIVE); COCAINE SCREEN,URINE NEGATIVE (NEGATIVE); METHADONE SCREEN, URINE NEGATIVE (NEGATIVE); OPIATE SCREEN,URINE NEGATIVE (NEGATIVE); PHENCYCLIDINE SCREEN,URINE NEGATIVE (NEGATIVE)
[2024-03-19] MEDS ORDERED: LORazepam 1 MG TABLET PO ONE (03:30)
[2024-03-19] MEDS: LORazepam 0.5 MG TABLET PO ONE (03:34)
[2024-03-19] MEDS: DiphenhydrAMINE HCL 25 MG CAPSULE PO ONE (03:44)
[2024-03-19] MEDS: QUEtiapine FUMARATE 100 MG TABLET PO ONE (03:44)
[2024-03-19 04:09] LABS: COVID AG,FIA SOURCE NASAL SWAB
[2024-03-19 04:30] LABS: SARS-COV2 (COVID) ANTIGEN,FIA Negative (Negative)
[2024-03-19] MEDS ORDERED: ZOLPIDEM TARTRATE 10 MG TABLET PO PRN ×2 (04:30→10:15)
[2024-03-19] MEDS ORDERED: HALOPERIDOL 5 MG TABLET PO PRN (04:30)
[2024-03-19] MEDS: LORazepam 2 MG TABLET PO PRN ×2 (07:35→13:20)
[2024-03-19] MEDS ORDERED: MAGNESIUM HYDROXIDE SUSPENSION 30 ML UDCUP PO PRN (10:15)
[2024-03-19] MEDS ORDERED: MAG HYDROX/ALUMINUM HYD/SIMETH ES 30 ML SUSPENSION UDCUP PO PRN (10:15)
[2024-03-19] MEDS ORDERED: PROMETHAZINE HCL 25 MG TABLET PO PRN (10:15)
[2024-03-19] MEDS ORDERED: GuaiFENesin/D-METHORPHAN [SUGAR-FREE] 200-20MG/10 ML SYRUP UDCUP PO PRN (10:15)
[2024-03-19] MEDS ORDERED: LOPERAMIDE HCL 2 MG CAPSULE PO PRN ×2 (10:15)
[2024-03-19] MEDS ORDERED: HydrOXYzine PAMOATE 50 MG CAPSULE PO PRN (10:15)
[2024-03-19] MEDS ORDERED: TAMS0.4C94 PO (11:11)
[2024-03-19] MEDS ORDERED: GABA-1181 PO (11:11)
[2024-03-19] MEDS ORDERED: FLUO40CA PO (11:11)
[2024-03-19] MEDS ORDERED: DICY20TA95 PO (11:11)
[2024-03-19] MEDS ORDERED: ATOR10TA69 PO (11:11)
[2024-03-19] MEDS ORDERED: MIRT45TA83 PO (11:11)
[2024-03-19] MEDS ORDERED: -PHARMACY VACCINE NOTE- MISC ONE (11:15)
[2024-03-19] MEDS: CYANOCOBALAMIN 1,000 MCG/ML VIAL IM ONE (11:15)
[2024-03-19] MEDS: THIAMINE 100 MG TABLET PO SCH (16:49)
[2024-03-19] MEDS ORDERED: DICYCLOMINE HCL 20 MG TABLET PO PRN (19:30)
[2024-03-19] MEDS: MIRTAZAPINE 15 MG TABLET PO SCH (20:04)
[2024-03-19] MEDS: MELATONIN 5 MG TABLET PO SCH (20:06)
[2024-03-20 02:40] VITALS: RESP 18
[2024-03-20 06:40] VITALS: BP 105/70; PULSE 62; RESP 17; TEMP 97.6
[2024-03-20] MEDS: NALTREXONE HCL 50 MG TABLET PO SCH (08:22)
[2024-03-20] MEDS: BusPIRone HCL 5 MG TABLET PO SCH (08:22)
[2024-03-20] MEDS: FOLIC ACID 1 MG TABLET PO SCH (08:22)
[2024-03-20] MEDS: FLUoxetine HCL 20 MG CAPSULE PO SCH (08:22)
[2024-03-20] MEDS: AmLODIPine BESYLATE 5 MG TABLET PO SCH (08:22)
[2024-03-20] MEDS: MULTIVITAMINS WITH MINERALS, THERAPEUTIC TABLET PO SCH (08:22)
[2024-03-20] MEDS: ATORVASTATIN CALCIUM 10 MG TABLET PO SCH (08:23)
[2024-03-20] MEDS: LORazepam 2 MG TABLET PO SCH (08:23)
[2024-03-20] MEDS: QUEtiapine FUMARATE 25 MG TABLET PO SCH (08:23)
[2024-03-20] MEDS: TAMSULOSIN HCL 0.4 MG CAPSULE PO SCH (08:23)
[2024-03-20 08:32] VITALS: BP 134/69; PULSE 74; RESP 17; TEMP 97; O2SAT 98
[2024-03-20 09:06] LABS: CHOL/HDL RATIO 3.6 (4.2-7.3); FREE T4 (FREE THYROXINE) 0.85 ng/dL (0.76-1.46); THYROID STIMULATING HORMONE 2.39 uIU/mL (0.36-3.74)
[2024-03-20 13:49] VITALS: BP 121/95; PULSE 74; RESP 17; TEMP 96.9; O2SAT 99
[2024-03-20] MEDS: LORazepam 2 MG TABLET PO PRN (18:24)
[2024-03-20 20:33] VITALS: BP 104/78; PULSE 96; RESP 18; TEMP 98; O2SAT 96
[2024-03-21 08:09] VITALS: BP 121/81; PULSE 60; RESP 16; TEMP 97.6
[2024-03-21 11:33] VITALS: BP 103/78
[2024-03-21 20:39] VITALS: BP 118/85; PULSE 77; RESP 18; TEMP 97.9; O2SAT 99
[2024-03-22] MEDS ORDERED: LORazepam 1 MG TABLET PO PRN (07:00)
[2024-03-22] MEDS: QUEtiapine FUMARATE 25 MG TABLET PO SCH ×2 (08:47→17:11)
[2024-03-22 08:48] VITALS: BP 104/62; PULSE 60; RESP 19; TEMP 96.7; O2SAT 98
[2024-03-22] MEDS: LORazepam 1 MG TABLET PO SCH (08:48)
[2024-03-22] MEDS: TUBERCULIN, PURIFIED PROTEIN DERIVATIVE 5 TU/0.1 ML SYRINGE ID ONE (08:53)
[2024-03-22] MEDS: QUEtiapine FUMARATE 100 MG TABLET PO PRN (16:07)
[2024-03-22] MEDS ORDERED: GABAPENTIN 300 MG CAPSULE PO PRN (16:30)
[2024-03-22 17:05] VITALS: BP 117/88; PULSE 62; RESP 16; O2SAT 97
[2024-03-22] MEDS: GABAPENTIN 300 MG CAPSULE PO SCH (17:09)
[2024-03-22 20:27] VITALS: BP 101/77; PULSE 99; RESP 18; TEMP 97.1; O2SAT 98
[2024-03-23 08:05] VITALS: BP 115/78; PULSE 97; RESP 17; TEMP 97.2; O2SAT 96
[2024-03-23] MEDS: LORazepam 1 MG TABLET PO PRN (10:01)
[2024-03-23] MEDS: LORazepam 2 MG/ML VIAL IM ONE (13:15)
[2024-03-23 16:41] VITALS: RESP 18; O2SAT 96
[2024-03-23] MEDS: ACETAMINOPHEN 325 MG TABLET PO PRN (16:41)
[2024-03-23 17:41] VITALS: RESP 17
[2024-03-23 17:52] VITALS: BP 126/84; PULSE 99; RESP 16; O2SAT 96
[2024-03-23 21:17] VITALS: BP 129/99; PULSE 73; RESP 17; TEMP 97.4; O2SAT 98
[2024-03-23] MEDS: PROPRANOLOL HCL 20 MG TABLET PO ONE (21:37)
[2024-03-24] MEDS: PROPRANOLOL HCL 20 MG TABLET PO SCH (06:45)
[2024-03-24 14:42] VITALS: BP 112/76; PULSE 74; RESP 18; TEMP 97.6; O2SAT 98
[2024-03-24 22:25] VITALS: BP 112/72; PULSE 52; RESP 18; TEMP 96.5; O2SAT 98
[2024-03-25 08:25] VITALS: BP 112/78; PULSE 51; RESP 16; TEMP 96.6; O2SAT 100
[2024-03-25 11:05] VITALS: RESP 16
[2024-03-25 12:05] VITALS: RESP 18
[2024-03-25] MEDS ORDERED: FLUO-418 PO (12:25)
[2024-03-25] MEDS ORDERED: MIRT-89 PO (12:25)
[2024-03-25] MEDS ORDERED: NALT50TA33 PO (12:25)
[2024-03-25] MEDS ORDERED: MELA5TAB40 PO (12:25)
[2024-03-25 12:30] VITALS: BP 90/63; PULSE 59; RESP 18
[2024-03-25] MEDS ORDERED: AMLO5TAB66 PO (15:25)
[2024-03-25] MEDS ORDERED: TAMS0.4C94 PO (15:25)
[2024-03-25] MEDS ORDERED: ATOR10TA69 PO (15:25)
== END 2024-03-25 17:26 | disposition home or self-care (01) | DRG 751 ==
LOC: EMS 02:03 → B2S 04:42
PROVIDERS: ADMIT Psychiatry & Neurology Psychiatry; ATTEND Psychiatry & Neurology Psychiatry
PROC: GZHZZZZ Group Psychotherapy (ICD-10-PCS; principal; 2024-03-19)
PROC: GZ51ZZZ Individual Psychotherapy, Behavioral (ICD-10-PCS; 2024-03-19)
PROC: GZ56ZZZ Individual Psychotherapy, Supportive (ICD-10-PCS; 2024-03-19)
PROC: GZ58ZZZ Individual Psychotherapy, Cognitive-Behavioral (ICD-10-PCS; 2024-03-19)
DX: F33.2 Major depressive disorder, recurrent severe without psychotic features (principal); F13.20 Sedative, hypnotic or anxiolytic dependence, uncomplicated; R45.851 Suicidal ideations; E78.00 Pure hypercholesterolemia, unspecified; Z20.822 Contact with and (suspected) exposure to COVID-19; I10 Essential (primary) hypertension; N40.0 Benign prostatic hyperplasia without lower urinary tract symptoms; F10.229 Alcohol dependence with intoxication, unspecified; Y90.9 Presence of alcohol in blood, level not specified; K21.9 Gastro-esophageal reflux disease without esophagitis; F41.0 Panic disorder [episodic paroxysmal anxiety]; F17.200 Nicotine dependence, unspecified, uncomplicated; J44.9 Chronic obstructive pulmonary disease, unspecified; Z55.9 Problems related to education and literacy, unspecified; Z59.9 Problem related to housing and economic circumstances, unspecified; Z63.9 Problem related to primary support group, unspecified; Z65.3 Problems related to other legal circumstances
CPT/HCPCS: 80048; 80061; 80307; 83036; 84439; 84443; 85025; 86592; 99285; G0480; J2060; J3420